=== PATIENT | male | born 1960 | race Caucasian/White ===

== ENCOUNTER 2017-07-17 15:39 | Emergency (ER) | payer SELFPAY ==
[2017-07-17] MEDS: KETOROLAC 60 MG/2 ML VIAL (J1885) IM (16:53)
== END 2017-07-17 18:07 | disposition home or self-care (01) ==
LOC: M ED 15:39
DX: M54.17 Radiculopathy, lumbosacral region (principal); F17.210 Nicotine dependence, cigarettes, uncomplicated
CPT/HCPCS: J1885

== ENCOUNTER 2018-02-12 15:13 | Emergency (ER) | payer SELFPAY ==
[2018-02-12] MEDS: NAPROXEN 250 MG TAB PO (17:18)
== END 2018-02-12 17:24 | disposition home or self-care (01) ==
LOC: M ED 15:13
DX: S83.411A Sprain of medial collateral ligament of right knee, initial encounter (principal); X58.XXXA Exposure to other specified factors, initial encounter; Y92.89 Other specified places as the place of occurrence of the external cause; K21.9 Gastro-esophageal reflux disease without esophagitis; F17.210 Nicotine dependence, cigarettes, uncomplicated
CPT/HCPCS: 99284

== ENCOUNTER 2020-11-30 11:16 | Emergency (ER) | payer OTHER, SELFPAY ==
[~2020-11-30] VITALS: Ht 175.3 cm; Wt 95.9 kg
[~2020-11-30 11:16] MED LIST: ADVI200T PO; KETO10TAB PO; NAPR-837 PO; PRIL40CA PO; ROBA500T PO
[2020-11-30] MEDS ORDERED: methocarbamoL 750 MG TAB PO ONE (13:00)
[2020-11-30] MEDS ORDERED: KETOROLAC 60MG 2ML VIAL IM ONE (13:00)
[2020-11-30] MEDS ORDERED: LIDOCAINE 5% (LIDODERM) PATCH TD ONE (13:00)
--- NOTE | 2020-11-30 14:07 | REP ---
INDICATION: fall 5 ft, landed Left hip/low back, pain. COMPARISON: 07/17/2017. TECHNIQUE: Five views lumbosacral spine. FINDINGS: There is no compression fracture. There is normal alignment and lumbar lordosis. There is moderate diffuse spurring. There is moderate disc space narrowing and subchondral sclerosis at all levels. There is sclerosis and spurring at the posterior facet joints diffusely. Posterior elements are intact. There is mild sclerosis at the SI joints. IMPRESSION: No acute fracture or dislocation. Degenerative changes. <Electronically signed by Jeffry Casillas > 11/30/20 [id number]
--- NOTE | 2020-11-30 14:08 | REP ---
INDICATION: fall 5 ft, landed Left hip/low back, pain. COMPARISON: None. TECHNIQUE: Two views left hip. FINDINGS: There is no evidence of acute fracture, dislocation or intrinsic bone disease. There is mild joint space narrowing, subchondral sclerosis and spurring of the left hip joint. IMPRESSION: No acute fracture or dislocation. Mild degenerative changes. <Electronically signed by Jeffry Casillas > 11/30/20 0331
[2020-11-30] MEDS ORDERED: ASPE4PAD TOP (14:39)
[2020-11-30] MEDS ORDERED: METH-1165 PO (14:39)
[2020-11-30 14:47] VITALS: BP 133/92
[2020-12-01] MEDS ORDERED: **NOTE PATIENT COMMENT** MISC XX ONE (01:00)
== END 2020-11-30 14:50 | disposition home or self-care (01) ==
LOC: M ED 11:16
DX: M54.5 Low back pain (principal); M25.552 Pain in left hip; W11.XXXA Fall on and from ladder, initial encounter; Y92.9 Unspecified place or not applicable; Y93.9 Activity, unspecified; Y99.9 Unspecified external cause status; M25.752 Osteophyte, left hip; M24.152 Other articular cartilage disorders, left hip; M48.07 Spinal stenosis, lumbosacral region; M46.1 Sacroiliitis, not elsewhere classified; K21.9 Gastro-esophageal reflux disease without esophagitis; F17.200 Nicotine dependence, unspecified, uncomplicated
CPT/HCPCS: 72110; 73502; 96372; 99283; J1885

== ENCOUNTER 2022-11-24 21:04 | Inpatient (IN) | payer OTHER, SELFPAY ==
[~2022-11-24] VITALS: Ht 175.3 cm; Wt 94.1 kg
[~2022-11-24 21:04] MED LIST changes: +ASPE4PAD TOP; +METH-1165 PO; +NICOTINE 21MG/24HR 1 EA TRANSDERMAL TD SCH
[2022-11-24 21:56] LABS: BASO # 0.1 10^3/uL (0.0-0.2); BASO % 0.6 % (0.0-1.0); EOS # 0.2 10^3/uL (0.0-0.5); EOS % 1.8 % (0.0-3.0); HEMATOCRIT 45.1 % (42.0-52.0); LYMPH # 1.8 10^3/uL (1.5-5.0); LYMPH % 18.3 % (24.0-44.0); MEAN CORPUSCULAR HEMOGLOBIN 29.5 pg (27.0-33.0); MEAN CORPUSCULAR HGB CONC 33.3 g/dl (32.0-36.5); MEAN CORPUSCULAR VOLUME 88.8 fl (80.0-96.0); MONO # 0.9 10^3/uL (0.0-0.8); MONO % 9.1 % (2.0-8.0); NEUTROPHILS # 6.7 10^3/uL (1.5-8.5); PLATELET COUNT, AUTOMATED 237 10^3/uL (150-450); RED BLOOD COUNT 5.08 10^6/uL (4.30-6.10); WHITE BLOOD COUNT 9.6 10^3/uL (4.0-10.0)
[2022-11-24 22:18] LABS: CK-MB VALUE MASS 5.1 NG/ML (<3.6)
[2022-11-24 22:20] LABS: BLOOD UREA NITROGEN 15 MG/DL (9-23); CALCIUM LEVEL 8.7 MG/DL (8.3-10.6); CARBON DIOXIDE LEVEL 31 MMOL/L (20-31); CHLORIDE LEVEL 106 MMOL/L (98-107); CPK CREATINE PHOSPHOKINASE 215 U/L (46-171); CREATININE FOR GFR 0.91 MG/DL (0.70-1.30); GLOMERULAR FILTRATION RATE > 60.0 (>49); GLUCOSE, FASTING 75 MG/DL (74-106); MB/CK RELATIVE INDEX 2.37 (< OR =4); POTASSIUM SERUM 4.2 MMOL/L (3.5-5.1); SODIUM LEVEL 142 MMOL/L (136-145)
[2022-11-25] MEDS ORDERED: IPRATROPIUM 0.5MG/ALBUTEROL 2.5MG INH SOL UD 3ML (DUONEB) NEB ONE
[2022-11-25] MEDS ORDERED: methylPREDNISolone 125MG 2ML VIAL IV ONE
[2022-11-25 00:15] LABS: ALBUMIN 3.7 G/DL (3.2-5.2); ALKALINE PHOSPHATASE 95 U/L (46-116); ALT/SGPT 20 U/L (7.0-40); AST/SGOT 17 U/L (<34); BILIRUBIN,DIRECT 0.5 MG/DL (<0.4); BILIRUBIN,TOTAL 1.1 MG/DL (0.3-1.2); CK-MB VALUE MASS 3.7 NG/ML (<3.6); TOTAL PROTEIN 6.7 G/DL (5.7-8.2)
[2022-11-25 00:17] LABS: CPK CREATINE PHOSPHOKINASE 204 U/L (46-171); MB/CK RELATIVE INDEX 1.81 (< OR =4)
[2022-11-25] MEDS ORDERED: ISOVUE-370 76% 100ML VIAL As Ordered ONE (00:39)
[2022-11-25 00:55] LABS: THYROID STIMULATING HORMONE 2.695 uIU/ML (0.55-4.78)
[2022-11-25 00:59] LABS: PROCALCITONIN <0.04 ng/ml
[2022-11-25] MEDS ORDERED: NS 1,000 ML IV ONE (01:00)
[2022-11-25] MEDS ORDERED: cefTRIAXone SOD 2 GM in D5W MINI-BAG PLUS 50 ML IV ONE (01:00)
[2022-11-25] MEDS ORDERED: ONDANSETRON 4MG 2ML VIAL As Ordered ONE (01:24)
[2022-11-25] MEDS ORDERED: ONDANSETRON 4MG 2ML VIAL IV ONE (01:30)
[2022-11-25] MEDS ORDERED: MAALOX 30 ML SUSP *UDC PO PRN (01:45)
[2022-11-25] MEDS ORDERED: MOM 30ML SUSPENSION UDC PO PRN (01:45)
[2022-11-25] MEDS ORDERED: ACETAMINOPHEN TAB 650MG DOSE (2X325MG) PO PRN (01:45)
[2022-11-25 01:46] LABS: INR 1.19; PROTHROMBIN TIME 14.8 SECONDS (12.5-14.5)
[2022-11-25 01:47] LABS: PARTIAL THROMBOPLASTIN TIME 31.3 SECONDS (24.8-34.2)
[2022-11-25] MEDS: METOPROLOL TART 25 MG TABLET PO SCH ×2 (02:10→08:10)
[2022-11-25] MEDS ORDERED: FAMO10TA50 PO (02:25)
[2022-11-25] MEDS ORDERED: PHEN-879 PO (02:25)
[2022-11-25] MEDS ORDERED: HOME MED LIST COMPLETE! XX SCH (02:25)
[2022-11-25] MEDS: IPRATROPIUM 0.5MG/ALBUTEROL 2.5MG INH SOL UD 3ML (DUONEB) NEB SCH ×3 (02:27→13:16)
[2022-11-25] MEDS ORDERED: DOXYCYCLINE HYCLATE 100 MG in D5W MINI-BAG PLUS 100 ML IV SCH (03:00)
[2022-11-25] MEDS: methylPREDNISolone 40MG 1ML VIAL IV SCH ×2 (05:54→12:04)
[2022-11-25] MEDS ORDERED: APIXABAN 5 MG TAB (ELIQUIS) PO SCH ×2 (06:00→21:00)
[2022-11-25 06:40] LABS: HEMATOCRIT 46.5 % (42.0-52.0); MEAN CORPUSCULAR HEMOGLOBIN 28.8 pg (27.0-33.0); MEAN CORPUSCULAR HGB CONC 32.3 g/dl (32.0-36.5); MEAN CORPUSCULAR VOLUME 89.4 fl (80.0-96.0); PLATELET COUNT, AUTOMATED 237 10^3/uL (150-450); WHITE BLOOD COUNT 8.3 10^3/uL (4.0-10.0)
[2022-11-25 07:04] LABS: BLOOD UREA NITROGEN 12 MG/DL (9-23); CALCIUM LEVEL 8.8 MG/DL (8.3-10.6); CARBON DIOXIDE LEVEL 27 MMOL/L (20-31); CHLORIDE LEVEL 106 MMOL/L (98-107); CREATININE FOR GFR 0.72 MG/DL (0.70-1.30); GLOMERULAR FILTRATION RATE > 60.0 (>49); GLUCOSE, FASTING 177 MG/DL (74-106); MAGNESIUM LEVEL 1.7 MG/DL (1.8-2.4); POTASSIUM SERUM 4.3 MMOL/L (3.5-5.1); SODIUM LEVEL 139 MMOL/L (136-145)
[2022-11-25] MEDS ORDERED: MAG SULF 1GM/100ML (MAG RUN) 1 GM in IV 1 EA IV ONE (08:00)
[2022-11-25] MEDS ORDERED: BUDESONIDE 0.5 MG/2 ML INHALATION SUSPENSION INH SCH (08:00)
[2022-11-25 08:10] VITALS: BP 154/84
[2022-11-25] MEDS ORDERED: APIXABAN 5 MG TAB (ELIQUIS) PO ONE (12:10)
[2022-11-25] MEDS ORDERED: ELIQ5TAB PO (12:16)
[2022-11-25] MEDS ORDERED: CEFD300C41 PO (12:16)
[2022-11-25] MEDS ORDERED: METO1TAB87 PO (12:16)
[2022-11-25] MEDS ORDERED: DOXY100C3 PO (12:16)
[2022-11-25] MEDS ORDERED: PRED10TA2 PO (12:16)
[2022-11-25] MEDS ORDERED: VENTAER INH (12:16)
[2022-11-25] MEDS ORDERED: DOXYCYCLINE HYCLATE 100MG TABLET PO ONE (13:25)
[2022-11-25 14:45] VITALS: O2SAT 90
[2022-11-25 14:53] VITALS: BP 142/77; TEMP 97.7
[2022-11-26] MEDS ORDERED: cefTRIAXone SOD 1 GM in D5W MINI-BAG PLUS 50 ML IV SCH (01:00)
[2022-12-02] MEDS ORDERED: APIXABAN 5 MG TAB (ELIQUIS) PO SCH (09:00)
== END 2022-11-25 15:15 | disposition home or self-care (01) | DRG 134 ==
LOC: M ED 21:04 → M ED INP 11-25 01:45
PROVIDERS: ADMIT Family Medicine; ATTEND Internal Medicine
DX: I26.99 Other pulmonary embolism without acute cor pulmonale (principal); I48.91 Unspecified atrial fibrillation; J18.9 Pneumonia, unspecified organism; J44.1 Chronic obstructive pulmonary disease with (acute) exacerbation; I10 Essential (primary) hypertension; F17.210 Nicotine dependence, cigarettes, uncomplicated; Z79.899 Other long term (current) drug therapy

== ENCOUNTER 2023-02-27 12:10 | Emergency (ER) | payer SELFPAY ==
[~2023-02-27 12:10] MED LIST changes: +CEFD1CAP9 PO; +DOXY100C3 PO; +ELIQ5TAB PO; +FAMO10TA50 PO; +METO1TAB87 PO; -NICOTINE 21MG/24HR 1 EA TRANSDERMAL TD SCH; +PHEN-879 PO; +PRED10TA2 PO; +VENTAER INH
[2023-02-27] MEDS ORDERED: ISOVUE-370 76% 100ML VIAL As Ordered ONE (15:09)
[2023-02-27 15:19] VITALS: TEMP 98.5
[2023-02-27 15:45] VITALS: BP 161/90
[2023-02-27 17:19] VITALS: O2SAT 95
[2023-02-27] MEDS ORDERED: AMOX875T2 PO (17:40)
[2023-02-27] MEDS ORDERED: METO1TAB87 PO (17:40)
[2023-02-27] MEDS ORDERED: ELIQ5TAB PO (17:40)
== END 2023-02-27 18:00 | disposition home or self-care (01) ==
LOC: M ED 12:10
DX: J18.9 Pneumonia, unspecified organism (principal); I48.91 Unspecified atrial fibrillation; I44.4 Left anterior fascicular block; J44.9 Chronic obstructive pulmonary disease, unspecified; F17.200 Nicotine dependence, unspecified, uncomplicated; F10.10 Alcohol abuse, uncomplicated; Z86.79 Personal history of other diseases of the circulatory system; Z79.52 Long term (current) use of systemic steroids; Z79.01 Long term (current) use of anticoagulants; Z79.2 Long term (current) use of antibiotics; Z79.899 Other long term (current) drug therapy
CPT/HCPCS: 71046; 71275; 87486; 87581; 87633; 87798; 93005; 99284; Q9967

== ENCOUNTER 2024-02-19 13:55 | Inpatient (IN) | payer MEDICARE, SELFPAY ==
[~2024-02-19] VITALS: Ht 175.3 cm; Wt 97.6 kg
[~2024-02-19 13:55] MED LIST changes: +AMOX875T2 PO
[2024-02-19 15:36] LABS: BASO # 0.1 10^3/uL (0.0-0.2); BASO % 0.5 % (0.0-1.0); EOS # 0.4 10^3/uL (0.0-0.5); HEMATOCRIT 49.7 % (42.0-52.0); HEMOGLOBIN 15.8 g/dl (13.5-17.5); LYMPH # 1.6 10^3/uL (1.5-5.0); LYMPH % 16.5 % (24.0-44.0); MEAN CORPUSCULAR HEMOGLOBIN 28.9 pg (27.0-33.0); MEAN CORPUSCULAR HGB CONC 31.8 g/dl (32.0-36.5); MEAN CORPUSCULAR VOLUME 90.9 fl (80.0-96.0); MONO # 0.9 10^3/uL (0.0-0.8); MONO % 9.3 % (2.0-8.0); NEUTROPHILS # 6.7 10^3/uL (1.5-8.5); NEUTROPHILS % 69.4 % (36.0-66.0); PLATELET COUNT, AUTOMATED 279 10^3/uL (150-450); RED BLOOD COUNT 5.47 10^6/uL (4.30-6.10); WHITE BLOOD COUNT 9.6 10^3/uL (4.0-10.0)
[2024-02-19 15:54] LABS: ALBUMIN 3.8 G/DL (3.2-5.2); ALKALINE PHOSPHATASE 108 U/L (40-129); ALT/SGPT 19 U/L (7.0-40); AST/SGOT 19 U/L (<34); BLOOD UREA NITROGEN 14 MG/DL (9-23); CALCIUM LEVEL 9.3 MG/DL (8.3-10.6); CARBON DIOXIDE LEVEL 31 MMOL/L (20-31); CHLORIDE LEVEL 108 MMOL/L (98-107); CREATININE FOR GFR 0.89 MG/DL (0.70-1.30); GLOMERULAR FILTRATION RATE > 60.0 (>49); GLUCOSE, FASTING 81 MG/DL (74-106); INR 1.01; PARTIAL THROMBOPLASTIN TIME 38.3 SECONDS (24.8-34.2); POTASSIUM SERUM 4.2 MMOL/L (3.5-5.1); PROTHROMBIN TIME 13.6 SECONDS (12.5-14.5); SODIUM LEVEL 140 MMOL/L (136-145); TOTAL PROTEIN 7.1 G/DL (5.7-8.2)
[2024-02-19] MEDS: LevoFLOXacin IV 750 MG in IV 1 EA IV ONE (17:41)
[2024-02-19] MEDS: LEVALBUTEROL 1.25MG 0.5ML CONCENTRATE NEB NEB ONE (18:22)
[2024-02-19] MEDS: IPRATROPIUM 0.02% SOLN 0.5MG 2.5ML NEB NEB ONE (18:22)
[2024-02-19] MEDS: diphenhydrAMINE 25MG CAP PO ONE (18:35)
[2024-02-19] MEDS: diphenhydrAMINE 50MG/ML VIAL IV STA (18:41)
[2024-02-19] MEDS: ACETAMINOPHEN 500 MG TAB PO ONE (18:56)
[2024-02-19] MEDS: dexAMETHasone 20MG/5ML VIAL IV ONE (18:58)
[2024-02-19] MEDS: cefTRIAXone SOD 1 GM in DEXTROSE 5% (D5W) ADV/MINI-BAG 50 ML IV ONE (18:58)
[2024-02-19] MEDS: AZITHROMYCIN INJ 500 MG, VIAL MATE ADAPTER 1 EACH in NS 250 ML IV ONE (19:40)
[2024-02-19 20:32] LABS: D-DIMER QUANT 0.51 ug/mL (<0.5)
[2024-02-19] MEDS: ASPIRIN 81MG CHEW TABLET PO ONE (20:38)
[2024-02-19] MEDS: METOPROLOL 5 MG/5 ML VIAL IV STA (20:59)
[2024-02-19] MEDS ORDERED: ISOVUE-370 76% 100ML VIAL As Ordered ONE (21:27)
[2024-02-19] MEDS ORDERED: MOM 30ML SUSPENSION UDC PO PRN (22:00)
[2024-02-19 23:13] VITALS: BP 130/92; TEMP 97.3; O2SAT 96
[2024-02-19] MEDS ORDERED: ALBUTEROL SULFATE 2.5MG/0.5ML INH NEB SOLN NEB PRN (23:35)
[2024-02-19] MEDS: ENOXAPARIN 100MG/1ML SYRINGE (J1650 PER 10MG) SC SCH (23:37)
[2024-02-19] MEDS: METOPROLOL TART 25 MG TABLET PO SCH (23:37)
[2024-02-19] MEDS: guaiFENesin ER TABLET 600 MG TAB PO SCH (23:37)
[2024-02-19] MEDS: LEVALBUTEROL 1.25MG 0.5ML CONCENTRATE NEB INH SCH (23:43)
[2024-02-20 04:23] VITALS: BP 118/58; TEMP 96.8; O2SAT 92
[2024-02-20 06:31] LABS: HEMATOCRIT 45.4 % (42.0-52.0); HEMOGLOBIN 15.2 g/dl (13.5-17.5); MEAN CORPUSCULAR HEMOGLOBIN 29.9 pg (27.0-33.0); MEAN CORPUSCULAR HGB CONC 33.5 g/dl (32.0-36.5); MEAN CORPUSCULAR VOLUME 89.2 fl (80.0-96.0); PLATELET COUNT, AUTOMATED 273 10^3/uL (150-450); RED BLOOD COUNT 5.09 10^6/uL (4.30-6.10); WHITE BLOOD COUNT 8.7 10^3/uL (4.0-10.0)
[2024-02-20 07:39] LABS: ALBUMIN 3.3 G/DL (3.2-5.2); ALKALINE PHOSPHATASE 101 U/L (40-129); ALT/SGPT 19 U/L (7.0-40); AST/SGOT 17 U/L (<34); BLOOD UREA NITROGEN 14 MG/DL (9-23); CALCIUM LEVEL 9.4 MG/DL (8.3-10.6); CARBON DIOXIDE LEVEL 26 MMOL/L (20-31); CHLORIDE LEVEL 105 MMOL/L (98-107); GLOMERULAR FILTRATION RATE > 60.0 (>49); GLUCOSE, FASTING 136 MG/DL (74-106); POTASSIUM SERUM 4.5 MMOL/L (3.5-5.1); SODIUM LEVEL 138 MMOL/L (136-145); TOTAL PROTEIN 6.7 G/DL (5.7-8.2)
[2024-02-20] MEDS: ACETAMINOPHEN 325 MG TAB PO PRN (07:59)
[2024-02-20] MEDS: NICOTINE 14 MG/24 HR TRANSDERMAL TD SCH (08:00)
[2024-02-20] MEDS ORDERED: NAPR-837 PO (10:12)
[2024-02-20] MEDS ORDERED: HOME MED LIST COMPLETE! XX SCH (10:15)
[2024-02-20] MEDS ORDERED: IPRATROPIUM 0.5MG/ALBUTEROL 2.5MG INH SOL UD 3ML (DUONEB) NEB PRN (10:35)
[2024-02-20 12:00] VITALS: BP 131/84; TEMP 97.5; O2SAT 96
[2024-02-20] MEDS: methylPREDNISolone 40MG 1ML VIAL IV SCH (12:13)
[2024-02-20] MEDS: IPRATROPIUM 0.5MG/ALBUTEROL 2.5MG INH SOL UD 3ML (DUONEB) NEB SCH (13:49)
[2024-02-20] MEDS: cefTRIAXone SOD 1 GM in DEXTROSE 5% (D5W) ADV/MINI-BAG 50 ML IV SCH (18:37)
[2024-02-20] MEDS: ADVAIR HFA 115/21MCG INHALER INH SCH (19:23)
[2024-02-20 19:44] VITALS: BP 151/79; TEMP 97.9; O2SAT 96
[2024-02-20] MEDS: APIXABAN 5 MG TAB (ELIQUIS) PO SCH (21:30)
[2024-02-20] MEDS: AZITHROMYCIN 250MG TABLET PO SCH (21:30)
[2024-02-21 04:14] VITALS: BP 140/75; TEMP 97.7; O2SAT 95
[2024-02-21 06:09] LABS: BASO % 0.1 % (0.0-1.0); HEMATOCRIT 45.6 % (42.0-52.0); HEMOGLOBIN 14.8 g/dl (13.5-17.5); LYMPH % 4.5 % (24.0-44.0); MEAN CORPUSCULAR HEMOGLOBIN 29.3 pg (27.0-33.0); MEAN CORPUSCULAR HGB CONC 32.5 g/dl (32.0-36.5); MEAN CORPUSCULAR VOLUME 90.3 fl (80.0-96.0); MONO # 0.5 10^3/uL (0.0-0.8); MONO % 2.5 % (2.0-8.0); NEUTROPHILS # 19.7 10^3/uL (1.5-8.5); NEUTROPHILS % 91.8 % (36.0-66.0); PLATELET COUNT, AUTOMATED 267 10^3/uL (150-450); RED BLOOD COUNT 5.05 10^6/uL (4.30-6.10); WHITE BLOOD COUNT 21.4 10^3/uL (4.0-10.0)
[2024-02-21 06:40] LABS: BLOOD UREA NITROGEN 14 MG/DL (9-23); CALCIUM LEVEL 9.8 MG/DL (8.3-10.6); CARBON DIOXIDE LEVEL 28 MMOL/L (20-31); CHLORIDE LEVEL 103 MMOL/L (98-107); CREATININE FOR GFR 0.71 MG/DL (0.70-1.30); GLOMERULAR FILTRATION RATE > 60.0 (>49); GLUCOSE, FASTING 162 MG/DL (74-106); POTASSIUM SERUM 4.6 MMOL/L (3.5-5.1); SODIUM LEVEL 138 MMOL/L (136-145)
[2024-02-21] MEDS: TIOTROPIUM INHALER/CAPSULE (SPIRIVA) INH SCH (07:41)
[2024-02-21] MEDS ORDERED: AZIT-12 PO (08:55)
[2024-02-21] MEDS ORDERED: ELIQ5TAB PO (08:55)
[2024-02-21] MEDS ORDERED: BUDE180A2 INH (08:55)
[2024-02-21 10:25] VITALS: BP 140/75
[2024-02-21] MEDS ORDERED: XARE15TA PO (10:34)
[2024-02-21] MEDS ORDERED: XARE20TA PO (10:34)
[2024-02-21] MEDS ORDERED: ADV250INH INH (10:43)
[2024-02-21] MEDS: PREVNAR-20 VACCINE 0.5ML SYRINGE IM.IMMUN ONE (12:22)
[2024-02-27] MEDS ORDERED: APIXABAN 5 MG TAB (ELIQUIS) PO SCH (21:00)
== END 2024-02-21 12:50 | disposition home health service (06) | DRG 175 ==
LOC: M ED 13:55 → M ED INP 21:58 → M MSPAV 23:09
PROVIDERS: ADMIT Student in an Organized Health Care Education/Training Program; ATTEND Internal Medicine
DX: I26.99 Other pulmonary embolism without acute cor pulmonale (principal); J18.9 Pneumonia, unspecified organism; J44.1 Chronic obstructive pulmonary disease with (acute) exacerbation; J98.11 Atelectasis; J44.0 Chronic obstructive pulmonary disease with (acute) lower respiratory infection; I50.22 Chronic systolic (congestive) heart failure; I11.0 Hypertensive heart disease with heart failure; I48.91 Unspecified atrial fibrillation; F17.200 Nicotine dependence, unspecified, uncomplicated; R91.8 Other nonspecific abnormal finding of lung field; Z88.8 Allergy status to other drugs, medicaments and biological substances; Z79.899 Other long term (current) drug therapy

== ENCOUNTER → 2024-05-03 | Outpatient (CLI) | payer MEDICARE, SELFPAY ==
[~2024-05-03] MED LIST changes: +ADVA1AER9 INH; +AZIT-12 PO; +BUDE180A2 INH; +XARE15TA PO; +XARE20TA PO
== END ==
LOC: M CARPUL 09:04
PROVIDERS: ATTEND Nurse Practitioner Family
DX: I50.9 Heart failure, unspecified (principal); I08.0 Rheumatic disorders of both mitral and aortic valves; I37.1 Nonrheumatic pulmonary valve insufficiency

== ENCOUNTER → 2024-06-05 | Outpatient (REF) | payer MEDICARE ==
[2024-06-05 13:35] LABS: CREATININE, URINE 66.1 MG/DL
[2024-06-05 13:36] LABS: MALB URINE SIEMENS < 3.0 MG/L
[2024-06-05 15:55] LABS: BASO # 0.1 10^3/uL (0.0-0.2); BASO % 0.7 % (0.0-1.0); EOS # 0.2 10^3/uL (0.0-0.5); EOS % 1.8 % (0.0-3.0); HEMATOCRIT 51.8 % (42.0-52.0); HEMOGLOBIN 17.1 g/dl (13.5-17.5); LYMPH % 23.1 % (24.0-44.0); MEAN CORPUSCULAR VOLUME 87.8 fl (80.0-96.0); MONO # 0.8 10^3/uL (0.0-0.8); NEUTROPHILS # 5.7 10^3/uL (1.5-8.5); NEUTROPHILS % 65.1 % (36.0-66.0); PLATELET COUNT, AUTOMATED 225 10^3/uL (150-450); WHITE BLOOD COUNT 8.7 10^3/uL (4.0-10.0)
[2024-06-05 15:57] LABS: CHOLESTEROL RISK RATIO 3.68 (<5); HDL CHOLESTEROL 34.7 MG/DL (>40); LDL CHOLESTEROL 82.1 MG/DL (<100); NON-HDL-C 93.3 MG/DL
[2024-06-05 16:00] LABS: THYROID STIMULATING HORMONE 2.644 uIU/ML (0.55-4.78)
[2024-06-05 16:13] LABS: HEMOGLOBIN A1c 5.5 % (4.0-6.0)
== END ==
LOC: M LAB REF 12:03
PROVIDERS: ATTEND Nurse Practitioner Family
DX: I10 Essential (primary) hypertension (principal); I50.9 Heart failure, unspecified; E66.3 Overweight; K21.9 Gastro-esophageal reflux disease without esophagitis; Z79.899 Other long term (current) drug therapy

== ENCOUNTER → 2024-07-17 | Outpatient (CLI) | payer MEDICARE | LOC: M PLARAD 10:40 | PROVIDERS: ATTEND Nurse Practitioner Family | DX: R91.8 Other nonspecific abnormal finding of lung field (principal) | CPT/HCPCS: 78815; A9552 ==

== ENCOUNTER 2024-09-26 09:48 | Inpatient (IN) | payer MEDICARE ==
[~2024-09-26] VITALS: Ht 175.3 cm; Wt 90.0 kg
[2024-09-26] MEDS: metroNIDAZOLE 500 MG in IV 1 EA IV ONE (06:00)
[~2024-09-26 09:48] MED LIST changes: +ASPI81CH33 PO; +METO25TA4 PO; +PANT40TA29 PO; +TELM1TAB33; +TELM1TAB35 PO
[2024-09-26] MEDS: CelecoXIB 400 MG CAP PO ONE (10:34)
[2024-09-26] MEDS: ALVIMOPAN 12 MG CAPSULE PO ONE (10:35)
[2024-09-26] MEDS: LR 1,000 ML IV SCH ×2 (10:40→17:35)
[2024-09-26] MEDS ORDERED: ALBU8.5H INH (11:16)
[2024-09-26] MEDS ORDERED: METO25TA4 PO (11:18)
[2024-09-26] MEDS ORDERED: ADVA1AER9 INH (11:20)
[2024-09-26] MEDS ORDERED: ALBU2.5V10 INH (11:21)
[2024-09-26] MEDS ORDERED: ACET1TAB55 PO (11:21)
[2024-09-26] MEDS ORDERED: HOME MED LIST COMPLETE! XX SCH (11:25)
[2024-09-26] MEDS ORDERED: MULTTAB86 PO (11:26)
[2024-09-26] MEDS ORDERED: MIDAZOLAM INJ 2 MG/2 ML VIAL As Ordered ONE (11:27)
[2024-09-26] MEDS ORDERED: ROCURONIUM BROMIDE 50MG/5ML VIAL As Ordered ONE (11:27)
[2024-09-26] MEDS ORDERED: LIDOCAINE 2% 100 MG/5 ML SDV (FOR ANES.) As Ordered ONE (11:27)
[2024-09-26] MEDS: IPRATROPIUM 0.5 MG/ALBUTEROL 2.5 MG INH SOL UD 3 ML NEB ONE (11:50)
[2024-09-26 12:09] LABS: T UPTAKE 55.0 % (22.5-37.0)
[2024-09-26 12:10] LABS: THYROXINE (T4) 3.8 UG/DL (4.5-10.9)
[2024-09-26] MEDS: HEPARIN SOD 5000 UNITS/ML 1 ML VIAL/SYRINGE SQ ONE (12:25)
[2024-09-26] MEDS ORDERED: PHENYLephrine 500MCG 5ML (100MCG/ML) SYRINGE As Ordered ONE (12:30)
[2024-09-26] MEDS: ceFAZolin SOD 2 GM IV ONCE IV ONE (12:33)
[2024-09-26] MEDS ORDERED: dexAMETHasone 4 MG/ML 1 ML VIAL As Ordered ONE (12:36)
[2024-09-26] MEDS ORDERED: PHENYLEPHRINE 10MG/ML 1ML VIAL As Ordered ONE (13:12)
[2024-09-26] MEDS: LIDOCAINE 1% SDV 30 ML VIAL As Ordered ONE (13:42)
[2024-09-26] MEDS ORDERED: HYDROmorphone HCL 2 MG/ML 1 ML VIAL As Ordered ONE (14:04)
[2024-09-26] MEDS ORDERED: SUGAMMADEX SODIUM 500 MG/5 ML VIAL As Ordered ONE (14:18)
[2024-09-26] MEDS ORDERED: ACETAMINOPHEN 1000MG/100ML IV BAG As Ordered ONE (14:18)
[2024-09-26] MEDS ORDERED: ONDANSETRON 4MG 2ML VIAL As Ordered ONE (14:18)
[2024-09-26] MEDS: INDOCYANINE GREEN 25 MG VIAL As Ordered ONE (15:31)
[2024-09-26] MEDS: GLUCAGON INJ 1 MG VIAL As Ordered ONE (16:06)
[2024-09-26] MEDS ORDERED: ONDANSETRON 4MG 2ML VIAL IV PRN ×2 (17:35)
[2024-09-26] MEDS ORDERED: MORPHINE 2 MG/ML 1 ML VIAL IV PRN (17:35)
[2024-09-26] MEDS: ACETAMINOPHEN 325 MG TAB PO SCH (17:35)
[2024-09-26] MEDS ORDERED: ALBUTEROL SULFATE 2.5 MG/0.5 ML INH CONCENTRATE NEB SOLN INH PRN (17:35)
[2024-09-26] MEDS ORDERED: ALBUTEROL 90 MCG/ACT 8 GM HFA INHALER INH PRN (17:35)
[2024-09-26] MEDS ORDERED: MOM 30 ML SUSPENSION UDC PO PRN (17:35)
[2024-09-26 18:37] VITALS: BP 149/96; TEMP 97.2; O2SAT 90
[2024-09-26 19:00] VITALS: BP 121/88; TEMP 97.3; O2SAT 91
[2024-09-26 19:40] VITALS: BP 129/88; TEMP 96.9; O2SAT 91
[2024-09-26] MEDS: ADVAIR HFA 115/21 MCG INHALER INH SCH (20:00)
[2024-09-26 20:50] VITALS: BP 131/88; TEMP 96.8; O2SAT 94
[2024-09-26] MEDS: KETOROLAC 30 MG/ML 1 ML VIAL IV SCH (21:12)
[2024-09-26] MEDS: METOPROLOL TART 25 MG TABLET PO SCH (21:13)
[2024-09-26 21:50] VITALS: BP 144/93; TEMP 97.3; O2SAT 96
[2024-09-26 23:03] VITALS: BP 141/93; TEMP 97.3; O2SAT 95
[2024-09-27] VITALS (29 sets, daily range): BP systolic 74–135; BP diastolic 50–87; TEMP 97–99.2; O2SAT 88–99
[2024-09-27] MEDS: NOREPINEPHRINE 4MG IN D5 250ML 4 MG in IV 1 EA IV SCH (02:03)
[2024-09-27 05:48] LABS: BASO # 0.0 10^3/uL (0.0-0.2); BASO % 0.1 % (0.0-1.0); EOS # 0.0 10^3/uL (0.0-0.5); EOS % 0.0 % (0.0-3.0); LYMPH # 1.1 10^3/uL (1.5-5.0); LYMPH % 5.6 % (24.0-44.0); MONO # 0.9 10^3/uL (0.0-0.8); MONO % 4.6 % (2.0-8.0); NEUTROPHILS # 18.0 10^3/uL (1.5-8.5); NEUTROPHILS % 89.2 % (36.0-66.0); PLATELET COUNT, AUTOMATED 254 10^3/uL (150-450)
[2024-09-27 06:21] LABS: CALCIUM LEVEL 8.5 MG/DL (8.3-10.6); CARBON DIOXIDE LEVEL 27 MMOL/L (20-31); CHLORIDE LEVEL 105 MMOL/L (98-107); CREATININE FOR GFR 0.82 MG/DL (0.70-1.30); GLOMERULAR FILTRATION RATE > 90.0 (>49); POTASSIUM SERUM 4.3 MMOL/L (3.5-5.1); SODIUM LEVEL 144 MMOL/L (136-145)
[2024-09-27] MEDS: ENOXAPARIN 40 MG/0.4 ML SYRINGE (J1650 PER 10MG) SC SCH (08:52)
[2024-09-27] MEDS: PANTOPRAZOLE 40MG TAB PO SCH (08:52)
[2024-09-27] MEDS: TELMISARTAN 20 MG TAB PO SCH (08:54)
[2024-09-27] MEDS: ASPIRIN 81 MG CHEWABLE TABLET PO SCH (08:54)
[2024-09-27] MEDS: NS (Normal Saline) 0.9% 1,000 ML IV ONE ×2 (13:33→16:07)
[2024-09-27] MEDS ORDERED: ISOVUE-370 76% 100 ML VIAL As Ordered ONE (15:08)
[2024-09-27] MEDS: DIGOXIN INJ 0.5 MG/2 ML AMP IV STA (18:54)
[2024-09-27] MEDS: METOPROLOL TART 25 MG TABLET PO SCH (20:02)
[2024-09-27] MEDS: diphenhydrAMINE 50 MG/ML VIAL IV ONE (20:47)
[2024-09-27] MEDS: HYDROCORTISONE 100 MG/2 ML VIAL IV STA (20:55)
[2024-09-27] MEDS: ACETAMINOPHEN *IV* 500 MG in IV 1 EA IV ONE (21:00)
[2024-09-27 21:21] LABS: CALCIUM LEVEL 7.2 MG/DL (8.3-10.6); CARBON DIOXIDE LEVEL 26.0 MMOL/L (20-31); CHLORIDE LEVEL 109.0 MMOL/L (98-107); CREATININE FOR GFR 1.01 MG/DL (0.70-1.30); GLOMERULAR FILTRATION RATE 82.5 (>49); POTASSIUM SERUM 4.6 MMOL/L (3.5-5.1); SODIUM LEVEL 143.0 MMOL/L (136-145)
[2024-09-27 22:31] LABS: ABG BASE EXCESS -1.0 (-2.0-2.0); ABG HCO3 22.5 MMOL/L (22.0-26.0); ABG O2 SATURATION 94.6 % (95.0-99.0); ABG PARTIAL PRESSURE CO2 33.0 mmHg (35.0-45.0); ABG PARTIAL PRESSURE O2 71.2 mmHg (75.0-100.0); ABG STANDARD HCO3 23.6 MMOL/L. (22.0-26.0); ABG TOTAL CO2 23.5 MMOL/L (23.0-31.0); ABG pH (ARTERIAL) 7.452 UNITS (7.350-7.450)
[2024-09-27 23:06] LABS: INR 1.15
[2024-09-27] MEDS: FUROSEMIDE 20 MG/2 ML VIAL IV ONE (23:57)
[2024-09-28] VITALS (92 sets, daily range): BP systolic 69–152; BP diastolic 40–70; TEMP 97–99.7; O2SAT 89–99
[2024-09-28] MEDS: LIDOCAINE 2% 5 ML JELLY UROJET TOP ONE (00:50)
[2024-09-28] MEDS ORDERED: KETAMINE HCL 200 MG/20 ML VIAL As Ordered ONE (03:03)
[2024-09-28] MEDS ORDERED: VASOPRESSIN INJ 20UNITS/ML 1ML VIAL As Ordered ONE (03:07)
[2024-09-28] MEDS ORDERED: ETOMIDATE 20 MG/10 ML VIAL As Ordered ONE (03:24)
[2024-09-28] MEDS ORDERED: LIDOCAINE PRES-FREE 2% 10 ML AMP As Ordered ONE (04:12)
[2024-09-28] MEDS ORDERED: CALCIUM CHLORIDE 10% 1 GM/10 ML SYR As Ordered ONE (04:20)
[2024-09-28 05:16] LABS: IONIZED CALCIUM 4.7 MG/DL (4.5-5.3)
[2024-09-28 05:46] LABS: INR 1.12
[2024-09-28 05:47] LABS: ALT/SGPT 17.0 U/L (7.0-40); AST/SGOT 23.0 U/L (<34); CALCIUM LEVEL 8.2 MG/DL (8.3-10.6); CARBON DIOXIDE LEVEL 25.0 MMOL/L (20-31); CHLORIDE LEVEL 109.0 MMOL/L (98-107); CREATININE FOR GFR 0.94 MG/DL (0.70-1.30); GLOMERULAR FILTRATION RATE 90.0 (>49); POTASSIUM SERUM 4.4 MMOL/L (3.5-5.1); SODIUM LEVEL 143.0 MMOL/L (136-145)
[2024-09-28 08:24] LABS: BASO # 0.0 10^3/uL (0.0-0.2); BASO % 0.1 % (0.0-1.0); EOS # 0.0 10^3/uL (0.0-0.5); EOS % 0.0 % (0.0-3.0); LYMPH # 3.1 10^3/uL (1.5-5.0); LYMPH % 13.2 % (24.0-44.0); MONO # 1.7 10^3/uL (0.0-0.8); MONO % 7.4 % (2.0-8.0); NEUTROPHILS # 18.3 10^3/uL (1.5-8.5); NEUTROPHILS % 78.7 % (36.0-66.0); PLATELET COUNT, AUTOMATED 192 10^3/uL (150-450)
[2024-09-28] MEDS: TIOTROPIUM BROM 2.5MCG/ACTUATION 4GM INH INH SCH (08:41)
[2024-09-28 08:42] LABS: C REACTIVE PROTEIN QUANTITATIV 5.06 MG/DL (<1.0); CALCIUM LEVEL 7.8 MG/DL (8.3-10.6); CARBON DIOXIDE LEVEL 26.0 MMOL/L (20-31); CHLORIDE LEVEL 109.0 MMOL/L (98-107); CREATININE FOR GFR 1.02 MG/DL (0.70-1.30); GLOMERULAR FILTRATION RATE 81.6 (>49); MAGNESIUM LEVEL 1.5 MG/DL (1.8-2.4); POTASSIUM SERUM 4.3 MMOL/L (3.5-5.1); SODIUM LEVEL 144.0 MMOL/L (136-145)
[2024-09-28] MEDS: VASOPRESSIN IN 0.9 % NACL 20 UNIT in IV 1 EA IV SCH (09:17)
[2024-09-28] MEDS: DIGOXIN INJ 0.5 MG/2 ML AMP IV SCH (09:17)
[2024-09-28] MEDS: LR 1,000 ML IV ONE (10:00)
[2024-09-28 12:49] LABS: BASO # 0.0 10^3/uL (0.0-0.2); BASO % 0.2 % (0.0-1.0); EOS # 0.0 10^3/uL (0.0-0.5); EOS % 0.1 % (0.0-3.0); LYMPH # 2.3 10^3/uL (1.5-5.0); LYMPH % 14.4 % (24.0-44.0); MONO # 1.5 10^3/uL (0.0-0.8); MONO % 9.3 % (2.0-8.0); NEUTROPHILS # 11.9 10^3/uL (1.5-8.5); NEUTROPHILS % 75.1 % (36.0-66.0); PLATELET COUNT, AUTOMATED 154 10^3/uL (150-450)
[2024-09-28] MEDS: SODIUM CHLORIDE 0.9% INJ 10 ML SYR IV SCH (17:53)
[2024-09-28 18:17] LABS: BASO # 0.1 10^3/uL (0.0-0.2); BASO % 0.3 % (0.0-1.0); EOS # 0.0 10^3/uL (0.0-0.5); EOS % 0.2 % (0.0-3.0); LYMPH # 2.3 10^3/uL (1.5-5.0); LYMPH % 14.4 % (24.0-44.0); MONO # 1.5 10^3/uL (0.0-0.8); MONO % 9.1 % (2.0-8.0); NEUTROPHILS # 12.1 10^3/uL (1.5-8.5); NEUTROPHILS % 75.3 % (36.0-66.0); PLATELET COUNT, AUTOMATED 141 10^3/uL (150-450)
[2024-09-28] MEDS: MORPHINE 2 MG/ML 1 ML VIAL IV ONE (21:38)
[2024-09-29] VITALS (53 sets, daily range): BP systolic 94–170; BP diastolic 50–93; TEMP 97.5–99.2; O2SAT 89–100
[2024-09-29] MEDS: NOREPINEPHRINE 4MG IN D5 250ML 4 MG in IV 1 EA IV SCH
[2024-09-29 00:34] LABS: BASO # 0.1 10^3/uL (0.0-0.2); BASO % 0.4 % (0.0-1.0); EOS # 0.1 10^3/uL (0.0-0.5); EOS % 0.5 % (0.0-3.0); LYMPH # 2.1 10^3/uL (1.5-5.0); LYMPH % 12.8 % (24.0-44.0); MONO # 1.6 10^3/uL (0.0-0.8); MONO % 9.8 % (2.0-8.0); NEUTROPHILS # 12.4 10^3/uL (1.5-8.5); NEUTROPHILS % 75.7 % (36.0-66.0); PLATELET COUNT, AUTOMATED 154 10^3/uL (150-450)
[2024-09-29 04:32] LABS: BASO # 0.0 10^3/uL (0.0-0.2); BASO % 0.3 % (0.0-1.0); EOS # 0.1 10^3/uL (0.0-0.5); EOS % 0.6 % (0.0-3.0); LYMPH # 1.7 10^3/uL (1.5-5.0); LYMPH % 11.6 % (24.0-44.0); MONO # 1.2 10^3/uL (0.0-0.8); MONO % 8.5 % (2.0-8.0); NEUTROPHILS # 11.2 10^3/uL (1.5-8.5); NEUTROPHILS % 78.3 % (36.0-66.0); PLATELET COUNT, AUTOMATED 148 10^3/uL (150-450)
[2024-09-29 04:58] LABS: CALCIUM LEVEL 7.3 MG/DL (8.3-10.6); CARBON DIOXIDE LEVEL 28 MMOL/L (20-31); CHLORIDE LEVEL 109 MMOL/L (98-107); CREATININE FOR GFR 0.69 MG/DL (0.70-1.30); GLOMERULAR FILTRATION RATE > 90.0 (>49); MAGNESIUM LEVEL 1.4 MG/DL (1.8-2.4); PHOSPHORUS LEVEL 2.2 MG/DL (2.4-5.1); POTASSIUM SERUM 3.7 MMOL/L (3.5-5.1); SODIUM LEVEL 146 MMOL/L (136-145)
[2024-09-29] MEDS: MAG SULF 1GM/100ML (MAG RUN) 1 GM in IV 1 EA IV ONE (06:19)
[2024-09-29] MEDS: K-PHOS ORIGINAL (POT.ACID PHOSPHATE) 500 MG TAB PO ONE (06:36)
[2024-09-29] MEDS: MORPHINE 4 MG/ML 1 ML VIAL IV PRN (07:43)
[2024-09-29] MEDS ORDERED: ACETAMINOPHEN 325 MG TAB PO PRN (08:20)
[2024-09-29] MEDS ORDERED: METOPROLOL TART 25 MG TABLET PO SCH (09:00)
[2024-09-29] MEDS: CALCIUM GLUCONATE 1,000 MG in DEXTROSE 5% (D5W) MINI-BAG PLU 100 ML IV ONE (09:17)
[2024-09-29] MEDS ORDERED: VANCOMYCIN HCL IV ONE (09:30)
[2024-09-29] MEDS ORDERED: FLUID PLACE HOLDER IV ONE (09:30)
[2024-09-29] MEDS: METOPROLOL 5 MG/5 ML VIAL IV STA (09:38)
[2024-09-29] MEDS: PIPERACILLIN/TAZOBACTAM SOD 4.5 GM in DEXTROSE 5% (D5W) ADV/MINI-BAG 50 ML IV SCH (10:37)
[2024-09-29 10:48] LABS: APPEARANCE, URINE HAZY (CLEAR); BACTERIA, URINE AUTO 1+ (NEGATIVE); BILIRUBIN, URINE AUTO NEGATIVE (NEGATIVE); BLOOD, URINE BLOOD 2+ (NEGATIVE); GLUCOSE, URINE (UA) AUTO NEGATIVE (NEGATIVE); KETONE, URINE AUTO NEGATIVE (NEGATIVE); LEUKOCYTE ESTERASE, URINE AUTO 1+ (NEGATIVE); MUCUS, URINE SMALL (NEGATIVE); NITRITE, URINE AUTO NEGATIVE (NEGATIVE); PROTEIN, URINE AUTO NEGATIVE (NEGATIVE); RBC, URINE AUTO 30 /HPF (0-3); SPECIFIC GRAVITY URINE AUTO 1.018 (1.002-1.035); SQUAMOUS EPITHELIAL CELL UR AU 0 /HPF (0-6); UROBILINOGEN, URINE AUTO 4.0 mg/dL (0.0-2.0); WBC, URINE AUTO 26 /HPF (0-3)
[2024-09-29] MEDS: LR 1,000 ML IV ONE (10:50)
[2024-09-29] MEDS: GASTROGRAFIN SOLUTION 30ML PO SCH (11:33)
[2024-09-29 12:24] LABS: BASO # 0.0 10^3/uL (0.0-0.2); BASO % 0.2 % (0.0-1.0); EOS # 0.0 10^3/uL (0.0-0.5); EOS % 0.1 % (0.0-3.0); LYMPH # 0.6 10^3/uL (1.5-5.0); LYMPH % 4.5 % (24.0-44.0); MONO # 0.7 10^3/uL (0.0-0.8); MONO % 5.1 % (2.0-8.0); NEUTROPHILS # 11.7 10^3/uL (1.5-8.5); NEUTROPHILS % 89.7 % (36.0-66.0); PLATELET COUNT, AUTOMATED 148 10^3/uL (150-450)
[2024-09-29] MEDS: VANCOMYCIN HCL 2,000 MG, VIAL MATE ADAPTER 1 EACH in NS 500 ML IV ONE (14:11)
[2024-09-29] MEDS ORDERED: AMIODARONE 150 MG/3 ML VIAL As Ordered ONE (19:49)
[2024-09-29] MEDS ORDERED: FENTANYL DRIP LOCK BOX KEY 1 EACH XX PRN (23:05)
[2024-09-29] MEDS: dexmedeTOMidine 200 MCG in IV 1 EA IV SCH (23:28)
[2024-09-29] MEDS: fentaNYL CITRATE/NaCl 1,000 MCG in IV 1 EA IV SCH (23:29)
[2024-09-29] MEDS: LR 500 ML IV SCH (23:29)
[2024-09-29] MEDS: MIDAZOLAM INJ 2 MG/2 ML VIAL IV PRN (23:55)
[2024-09-30] VITALS (118 sets, daily range): BP systolic 52–158; BP diastolic 30–78; TEMP 97.7–99; O2SAT 93–100
[2024-09-30 00:31] LABS: ABG BASE EXCESS 2.1 (-2.0-2.0); ABG HCO3 27.3 MMOL/L (22.0-26.0); ABG O2 SATURATION 97.3 % (95.0-99.0); ABG PARTIAL PRESSURE CO2 45.1 mmHg (35.0-45.0); ABG PARTIAL PRESSURE O2 112.1 mmHg (75.0-100.0); ABG STANDARD HCO3 26.4 MMOL/L. (22.0-26.0); ABG TOTAL CO2 28.7 MMOL/L (23.0-31.0); ABG pH (ARTERIAL) 7.400 UNITS (7.350-7.450)
[2024-09-30] MEDS: VANCOMYCIN HCL 1,250 MG, VIAL MATE ADAPTER 1 EACH in NS 250 ML IV SCH (02:09)
[2024-09-30 05:05] LABS: BASO # 0.0 10^3/uL (0.0-0.2); BASO % 0.1 % (0.0-1.0); EOS # 0.0 10^3/uL (0.0-0.5); EOS % 0.0 % (0.0-3.0); LYMPH # 1.0 10^3/uL (1.5-5.0); LYMPH % 6.1 % (24.0-44.0); MONO # 0.9 10^3/uL (0.0-0.8); MONO % 5.1 % (2.0-8.0); NEUTROPHILS # 15.0 10^3/uL (1.5-8.5); NEUTROPHILS % 88.0 % (36.0-66.0); PLATELET COUNT, AUTOMATED 170 10^3/uL (150-450)
[2024-09-30 05:30] LABS: ALT/SGPT 32 U/L (7.0-40); AST/SGOT 36 U/L (<34); CALCIUM LEVEL 6.6 MG/DL (8.3-10.6); CARBON DIOXIDE LEVEL 27 MMOL/L (20-31); CHLORIDE LEVEL 97 MMOL/L (98-107); CREATININE FOR GFR 0.68 MG/DL (0.70-1.30); GLOMERULAR FILTRATION RATE > 90.0 (>49); MAGNESIUM LEVEL 1.2 MG/DL (1.8-2.4); PHOSPHORUS LEVEL 3.7 MG/DL (2.4-5.1); POTASSIUM SERUM 3.5 MMOL/L (3.5-5.1); SODIUM LEVEL 134 MMOL/L (136-145)
[2024-09-30] MEDS: MAG SULF 1GM/100ML (MAG RUN) 1 GM in IV 1 EA IV ONE (06:44)
[2024-09-30] MEDS: CALCIUM GLUCONATE 1,000 MG in DEXTROSE 5% (D5W) MINI-BAG PLU 100 ML IV ONE (07:53)
[2024-09-30] MEDS: PANTOPRAZOLE 40MG VIAL IV SCH (09:54)
[2024-09-30] MEDS: MAG SULF 1GM/100ML (MAG RUN) 1 GM in IV 1 EA IV SCH (09:59)
[2024-09-30] MEDS: VANCOMYCIN HCL 1,500 MG, VIAL MATE ADAPTER 1 EACH in NS 500 ML IV ONE (11:51)
[2024-09-30] MEDS: KCL 20MEQ IN 100ML SWI (KRUN) 20 MEQ in IV 1 EA IV ONE (11:52)
[2024-09-30 14:27] LABS: BASO # 0.0 10^3/uL (0.0-0.2); BASO % 0.1 % (0.0-1.0); EOS # 0.0 10^3/uL (0.0-0.5); EOS % 0.1 % (0.0-3.0); LYMPH # 1.2 10^3/uL (1.5-5.0); LYMPH % 8.3 % (24.0-44.0); MONO # 1.0 10^3/uL (0.0-0.8); MONO % 6.7 % (2.0-8.0); NEUTROPHILS # 11.9 10^3/uL (1.5-8.5); NEUTROPHILS % 84.3 % (36.0-66.0); PLATELET COUNT, AUTOMATED 208 10^3/uL (150-450)
[2024-09-30 14:51] LABS: CALCIUM LEVEL 7.0 MG/DL (8.3-10.6); CARBON DIOXIDE LEVEL 31 MMOL/L (20-31); CHLORIDE LEVEL 104 MMOL/L (98-107); CREATININE FOR GFR 0.68 MG/DL (0.70-1.30); GLOMERULAR FILTRATION RATE > 90.0 (>49); MAGNESIUM LEVEL 2.0 MG/DL (1.8-2.4); POTASSIUM SERUM 4.2 MMOL/L (3.5-5.1); SODIUM LEVEL 142 MMOL/L (136-145)
[2024-09-30] MEDS: VANCOMYCIN HCL 1,000 MG, VIAL MATE ADAPTER 1 EACH in NS 250 ML IV SCH (20:50)
[2024-10-01] VITALS (76 sets, daily range): BP systolic 80–140; BP diastolic 46–121; TEMP 97–98.4; O2SAT 85–99
[2024-10-01 04:30] LABS: BASO # 0.0 10^3/uL (0.0-0.2); BASO % 0.1 % (0.0-1.0); EOS # 0.1 10^3/uL (0.0-0.5); EOS % 1.0 % (0.0-3.0); LYMPH # 1.2 10^3/uL (1.5-5.0); LYMPH % 8.0 % (24.0-44.0); MONO # 1.1 10^3/uL (0.0-0.8); MONO % 7.5 % (2.0-8.0); NEUTROPHILS # 12.0 10^3/uL (1.5-8.5); NEUTROPHILS % 82.7 % (36.0-66.0); PLATELET COUNT, AUTOMATED 210 10^3/uL (150-450)
[2024-10-01 04:49] LABS: ALT/SGPT 26 U/L (7.0-40); AST/SGOT 24 U/L (<34); CALCIUM LEVEL 7.1 MG/DL (8.3-10.6); CARBON DIOXIDE LEVEL 31 MMOL/L (20-31); CHLORIDE LEVEL 104 MMOL/L (98-107); CREATININE FOR GFR 0.68 MG/DL (0.70-1.30); GLOMERULAR FILTRATION RATE > 90.0 (>49); MAGNESIUM LEVEL 1.9 MG/DL (1.8-2.4); POTASSIUM SERUM 3.7 MMOL/L (3.5-5.1); SODIUM LEVEL 143 MMOL/L (136-145)
[2024-10-01] MEDS: KCL 20MEQ IN 100ML SWI (KRUN) 20 MEQ in IV 1 EA IV SCH (10:49)
[2024-10-01] MEDS: MAG SULF 1GM/100ML (MAG RUN) 1 GM in IV 1 EA IV SCH (10:50)
[2024-10-01] MEDS ORDERED: CHLORASEPTIC SPRAY MT PRN (14:45)
[2024-10-01] MEDS: CEPACOL LOZENGE PO PRN (16:11)
[2024-10-01] MEDS: METOPROLOL 5 MG/5 ML VIAL IV PRN (17:56)
[2024-10-01] MEDS: HEPARIN SOD 5000 UNITS/ML 1 ML VIAL/SYRINGE SQ SCH (20:27)
[2024-10-02] VITALS (30 sets, daily range): BP systolic 90–163; BP diastolic 59–96; TEMP 97.5–98.8; O2SAT 90–98
[2024-10-02 06:08] LABS: BASO # 0.0 10^3/uL (0.0-0.2); BASO % 0.1 % (0.0-1.0); EOS # 0.2 10^3/uL (0.0-0.5); EOS % 1.3 % (0.0-3.0); LYMPH # 1.3 10^3/uL (1.5-5.0); LYMPH % 7.5 % (24.0-44.0); MONO # 1.3 10^3/uL (0.0-0.8); MONO % 7.7 % (2.0-8.0); NEUTROPHILS # 13.8 10^3/uL (1.5-8.5); NEUTROPHILS % 82.6 % (36.0-66.0); PLATELET COUNT, AUTOMATED 242 10^3/uL (150-450)
[2024-10-02 06:33] LABS: ALT/SGPT 39 U/L (7.0-40); AST/SGOT 40 U/L (<34); CALCIUM LEVEL 7.5 MG/DL (8.3-10.6); CARBON DIOXIDE LEVEL 29 MMOL/L (20-31); CHLORIDE LEVEL 102 MMOL/L (98-107); CREATININE FOR GFR 0.72 MG/DL (0.70-1.30); GLOMERULAR FILTRATION RATE > 90.0 (>49); MAGNESIUM LEVEL 2.0 MG/DL (1.8-2.4); PHOSPHORUS LEVEL 3.3 MG/DL (2.4-5.1); POTASSIUM SERUM 3.5 MMOL/L (3.5-5.1); SODIUM LEVEL 144 MMOL/L (136-145)
[2024-10-02] MEDS: KCL 20MEQ IN 100ML SWI (KRUN) 20 MEQ in IV 1 EA IV SCH (08:45)
[2024-10-02] MEDS: DIGOXIN INJ 0.5 MG/2 ML AMP IV ONE (08:59)
[2024-10-02] MEDS: METOPROLOL TART 12.5 MG PER 1/2 TAB PO SCH (09:42)
[2024-10-02] MEDS: METOPROLOL TART 25 MG TABLET PO ONE (11:10)
[2024-10-02] MEDS: DIGOXIN INJ 0.5 MG/2 ML AMP IV SCH (16:00)
[2024-10-02] MEDS: METOPROLOL 5 MG/5 ML VIAL IV SCH (17:42)
[2024-10-02] MEDS ORDERED: METOPROLOL 5 MG/5 ML VIAL IV SCH (18:00)
[2024-10-02] MEDS ORDERED: METOPROLOL TART 50 MG TAB PO SCH (21:00)
[2024-10-03] VITALS (34 sets, daily range): BP systolic 106–139; BP diastolic 59–80; TEMP 97.8–98.7; O2SAT 84–97
[2024-10-03 04:48] LABS: BASO # 0.0 10^3/uL (0.0-0.2); BASO % 0.2 % (0.0-1.0); EOS # 0.6 10^3/uL (0.0-0.5); EOS % 4.9 % (0.0-3.0); LYMPH # 1.1 10^3/uL (1.5-5.0); LYMPH % 9.7 % (24.0-44.0); MONO # 1.3 10^3/uL (0.0-0.8); MONO % 10.9 % (2.0-8.0); NEUTROPHILS # 8.5 10^3/uL (1.5-8.5); NEUTROPHILS % 73.4 % (36.0-66.0); PLATELET COUNT, AUTOMATED 285 10^3/uL (150-450)
[2024-10-03 05:04] LABS: DIGOXIN LEVEL 1.0 NG/ML (0.8-2.0)
[2024-10-03 05:05] LABS: ALT/SGPT 37 U/L (7.0-40); AST/SGOT 31 U/L (<34); CALCIUM LEVEL 7.1 MG/DL (8.3-10.6); CARBON DIOXIDE LEVEL 30 MMOL/L (20-31); CHLORIDE LEVEL 102 MMOL/L (98-107); CREATININE FOR GFR 0.63 MG/DL (0.70-1.30); GLOMERULAR FILTRATION RATE > 90.0 (>49); MAGNESIUM LEVEL 1.8 MG/DL (1.8-2.4); PHOSPHORUS LEVEL 3.5 MG/DL (2.4-5.1); POTASSIUM SERUM 3.5 MMOL/L (3.5-5.1); SODIUM LEVEL 141 MMOL/L (136-145)
[2024-10-03 05:18] LABS: C REACTIVE PROTEIN QUANTITATIV 14.73 MG/DL (<1.0)
[2024-10-03] MEDS: DIGOXIN 0.125 MG TAB PO SCH (13:31)
[2024-10-03] MEDS: dilTIAZem 25 MG/5 ML VIAL IV STA (17:47)
[2024-10-04] VITALS (7 sets, daily range): BP systolic 106–132; BP diastolic 57–73; TEMP 97.8–99.2; O2SAT 87–98
[2024-10-04 05:53] LABS: BASO # 0.0 10^3/uL (0.0-0.2); BASO % 0.2 % (0.0-1.0); EOS # 0.5 10^3/uL (0.0-0.5); EOS % 4.3 % (0.0-3.0); LYMPH # 1.1 10^3/uL (1.5-5.0); LYMPH % 9.0 % (24.0-44.0); MONO # 1.4 10^3/uL (0.0-0.8); MONO % 11.1 % (2.0-8.0); NEUTROPHILS # 9.2 10^3/uL (1.5-8.5); NEUTROPHILS % 74.0 % (36.0-66.0); PLATELET COUNT, AUTOMATED 320 10^3/uL (150-450)
[2024-10-04 06:17] LABS: CALCIUM LEVEL 7.0 MG/DL (8.3-10.6); CARBON DIOXIDE LEVEL 31 MMOL/L (20-31); CHLORIDE LEVEL 100 MMOL/L (98-107); CREATININE FOR GFR 0.63 MG/DL (0.70-1.30); GLOMERULAR FILTRATION RATE > 90.0 (>49); MAGNESIUM LEVEL 1.8 MG/DL (1.8-2.4); POTASSIUM SERUM 3.5 MMOL/L (3.5-5.1); SODIUM LEVEL 140 MMOL/L (136-145)
[2024-10-04] MEDS: dilTIAZem 60 MG TAB PO SCH (12:08)
[2024-10-05] VITALS (7 sets, daily range): BP systolic 124–140; BP diastolic 63–87; TEMP 96.9–97.9; O2SAT 92–96
[2024-10-05 05:22] LABS: BASO # 0.0 10^3/uL (0.0-0.2); BASO % 0.3 % (0.0-1.0); EOS # 0.6 10^3/uL (0.0-0.5); EOS % 3.7 % (0.0-3.0); LYMPH # 1.4 10^3/uL (1.5-5.0); LYMPH % 9.1 % (24.0-44.0); MONO # 1.6 10^3/uL (0.0-0.8); MONO % 10.3 % (2.0-8.0); NEUTROPHILS # 11.2 10^3/uL (1.5-8.5); NEUTROPHILS % 74.8 % (36.0-66.0); PLATELET COUNT, AUTOMATED 352 10^3/uL (150-450)
[2024-10-05 05:44] LABS: C REACTIVE PROTEIN QUANTITATIV 8.14 MG/DL (<1.0); CALCIUM LEVEL 7.5 MG/DL (8.3-10.6); CARBON DIOXIDE LEVEL 30 MMOL/L (20-31); CHLORIDE LEVEL 98 MMOL/L (98-107); CREATININE FOR GFR 0.66 MG/DL (0.70-1.30); GLOMERULAR FILTRATION RATE > 90.0 (>49); POTASSIUM SERUM 3.8 MMOL/L (3.5-5.1); SODIUM LEVEL 139 MMOL/L (136-145)
[2024-10-05] MEDS: FUROSEMIDE 40 MG/4 ML VIAL IV ONE (12:37)
[2024-10-06] VITALS (7 sets, daily range): BP systolic 93–136; BP diastolic 62–78; TEMP 97.1–98.1; O2SAT 90–94
[2024-10-06] MEDS: SODIUM CHLORIDE 0.9% INJ 10 ML SYR IV PRN (05:56)
[2024-10-06 06:20] LABS: BASO # 0.0 10^3/uL (0.0-0.2); BASO % 0.2 % (0.0-1.0); EOS # 0.4 10^3/uL (0.0-0.5); EOS % 3.3 % (0.0-3.0); LYMPH # 1.1 10^3/uL (1.5-5.0); LYMPH % 8.4 % (24.0-44.0); MONO # 1.3 10^3/uL (0.0-0.8); MONO % 9.6 % (2.0-8.0); NEUTROPHILS # 10.0 10^3/uL (1.5-8.5); NEUTROPHILS % 76.2 % (36.0-66.0); PLATELET COUNT, AUTOMATED 356 10^3/uL (150-450)
[2024-10-06 06:53] LABS: C REACTIVE PROTEIN QUANTITATIV 7.83 MG/DL (<1.0); CALCIUM LEVEL 7.6 MG/DL (8.3-10.6); CARBON DIOXIDE LEVEL 30 MMOL/L (20-31); CHLORIDE LEVEL 97 MMOL/L (98-107); CREATININE FOR GFR 0.65 MG/DL (0.70-1.30); GLOMERULAR FILTRATION RATE > 90.0 (>49); POTASSIUM SERUM 3.5 MMOL/L (3.5-5.1); SODIUM LEVEL 139 MMOL/L (136-145)
[2024-10-06] MEDS: POTASSIUM CHLORIDE 10MEQ SR TABLET PO ONE (09:23)
[2024-10-06] MEDS: dilTIAZem 120 MG **CD** CAPSULE PO SCH (12:47)
[2024-10-07 05:00] VITALS: BP 111/62; TEMP 97.3; O2SAT 100
[2024-10-07 06:52] LABS: BASO # 0.0 10^3/uL (0.0-0.2); BASO % 0.3 % (0.0-1.0); EOS # 0.3 10^3/uL (0.0-0.5); EOS % 2.9 % (0.0-3.0); LYMPH # 1.1 10^3/uL (1.5-5.0); LYMPH % 9.1 % (24.0-44.0); MONO # 1.2 10^3/uL (0.0-0.8); MONO % 9.7 % (2.0-8.0); NEUTROPHILS # 9.0 10^3/uL (1.5-8.5); NEUTROPHILS % 76.4 % (36.0-66.0); PLATELET COUNT, AUTOMATED 411 10^3/uL (150-450)
[2024-10-07 07:11] LABS: C REACTIVE PROTEIN QUANTITATIV 6.31 MG/DL (<1.0); CALCIUM LEVEL 7.5 MG/DL (8.3-10.6); CARBON DIOXIDE LEVEL 30 MMOL/L (20-31); CHLORIDE LEVEL 101 MMOL/L (98-107); CREATININE FOR GFR 0.67 MG/DL (0.70-1.30); GLOMERULAR FILTRATION RATE > 90.0 (>49); POTASSIUM SERUM 3.5 MMOL/L (3.5-5.1); SODIUM LEVEL 139 MMOL/L (136-145)
[2024-10-07 08:25] VITALS: BP 124/61; TEMP 97.5; O2SAT 100
[2024-10-07 13:04] VITALS: BP 119/80; TEMP 96.9; O2SAT 96
[2024-10-07 15:25] VITALS: BP 143/77; TEMP 97.9; O2SAT 97
[2024-10-07 20:18] VITALS: BP 136/77; TEMP 97.9; O2SAT 94
[2024-10-08 05:44] VITALS: BP 136/93; TEMP 97.9; O2SAT 97
[2024-10-08 06:27] LABS: BASO # 0.0 10^3/uL (0.0-0.2); BASO % 0.4 % (0.0-1.0); EOS # 0.3 10^3/uL (0.0-0.5); EOS % 3.0 % (0.0-3.0); LYMPH # 1.2 10^3/uL (1.5-5.0); LYMPH % 10.6 % (24.0-44.0); MONO # 1.0 10^3/uL (0.0-0.8); MONO % 8.9 % (2.0-8.0); NEUTROPHILS # 8.6 10^3/uL (1.5-8.5); NEUTROPHILS % 75.4 % (36.0-66.0); PLATELET COUNT, AUTOMATED 485 10^3/uL (150-450)
[2024-10-08 11:33] VITALS: BP 121/71; TEMP 98.1; O2SAT 93
[2024-10-08 20:00] VITALS: BP 119/71; TEMP 98.1; O2SAT 95
[2024-10-08] MEDS: dilTIAZem 120 MG **CD** CAPSULE PO SCH (20:41)
[2024-10-09 04:07] VITALS: BP 119/71; TEMP 97.9; O2SAT 95
[2024-10-09 05:47] LABS: BASO # 0.0 10^3/uL (0.0-0.2); BASO % 0.4 % (0.0-1.0); EOS # 0.4 10^3/uL (0.0-0.5); EOS % 3.3 % (0.0-3.0); LYMPH # 1.3 10^3/uL (1.5-5.0); LYMPH % 12.2 % (24.0-44.0); MONO # 1.1 10^3/uL (0.0-0.8); MONO % 10.7 % (2.0-8.0); NEUTROPHILS # 7.6 10^3/uL (1.5-8.5); NEUTROPHILS % 72.5 % (36.0-66.0); PLATELET COUNT, AUTOMATED 468 10^3/uL (150-450)
[2024-10-09 06:11] LABS: C REACTIVE PROTEIN QUANTITATIV 4.07 MG/DL (<1.0); CALCIUM LEVEL 7.8 MG/DL (8.3-10.6); CARBON DIOXIDE LEVEL 28 MMOL/L (20-31); CHLORIDE LEVEL 103 MMOL/L (98-107); CREATININE FOR GFR 0.74 MG/DL (0.70-1.30); GLOMERULAR FILTRATION RATE > 90.0 (>49); POTASSIUM SERUM 4.2 MMOL/L (3.5-5.1); SODIUM LEVEL 142 MMOL/L (136-145)
[2024-10-09 09:55] VITALS: BP 119/71
[2024-10-09] MEDS ORDERED: BACI28.417 TOP (09:58)
[2024-10-09] MEDS ORDERED: DILT12SRCA PO (09:58)
[2024-10-09] MEDS ORDERED: DIGO0.123 PO (09:58)
[2024-10-09] MEDS ORDERED: OXYC-517 PO (09:58)
[2024-10-09] MEDS ORDERED: AMOX875T2 PO (09:58)
[2024-10-09 12:00] VITALS: BP 120/71; TEMP 98.2; O2SAT 94
== END 2024-10-09 13:33 | disposition home health service (06) | DRG 329 ==
LOC: M OR 09:48 → M MS5PR 18:30 → M PCU 09-27 17:25 → M ICU 09-27 20:39 → M MSPAV 10-07 15:22
PROVIDERS: ADMIT Surgery; ATTEND Internal Medicine
PROC: 8E0W4CZ Robotic Assisted Procedure of Trunk Region, Percutaneous Endoscopic Approach (ICD-10-PCS; 2024-09-26)
PROC: 0DBN4ZZ Excision of Sigmoid Colon, Percutaneous Endoscopic Approach (ICD-10-PCS; principal; 2024-09-26 11:30)
PROC: 30233N1 Transfusion of Nonautologous Red Blood Cells into Peripheral Vein, Percutaneous Approach (ICD-10-PCS; 2024-09-27)
PROC: 0W3P8ZZ Control Bleeding in Gastrointestinal Tract, Via Natural or Artificial Opening Endoscopic (ICD-10-PCS; 2024-09-28)
PROC: 0DQN4ZZ Repair Sigmoid Colon, Percutaneous Endoscopic Approach (ICD-10-PCS; 2024-09-29)
PROC: 0D1K4Z4 Bypass Ascending Colon to Cutaneous, Percutaneous Endoscopic Approach (ICD-10-PCS; 2024-09-29)
PROC: 5A1945Z Respiratory Ventilation, 24-96 Consecutive Hours (ICD-10-PCS; 2024-09-29)
PROC: 8E0W4CZ Robotic Assisted Procedure of Trunk Region, Percutaneous Endoscopic Approach (ICD-10-PCS; 2024-09-29)
DX: C19 Malignant neoplasm of rectosigmoid junction (principal); R57.8 Other shock; K65.0 Generalized (acute) peritonitis; J96.01 Acute respiratory failure with hypoxia; A41.9 Sepsis, unspecified organism; J18.9 Pneumonia, unspecified organism; I50.42 Chronic combined systolic (congestive) and diastolic (congestive) heart failure; I48.21 Permanent atrial fibrillation; K91.89 Other postprocedural complications and disorders of digestive system; J98.11 Atelectasis; I27.20 Pulmonary hypertension, unspecified; I27.81 Cor pulmonale (chronic); I11.0 Hypertensive heart disease with heart failure; J44.9 Chronic obstructive pulmonary disease, unspecified; Z68.30 Body mass index [BMI] 30.0-30.9, adult; I35.9 Nonrheumatic aortic valve disorder, unspecified; F17.210 Nicotine dependence, cigarettes, uncomplicated; D50.0 Iron deficiency anemia secondary to blood loss (chronic); Z93.2 Ileostomy status; B96.1 Klebsiella pneumoniae [K. pneumoniae] as the cause of diseases classified elsewhere; R00.0 Tachycardia, unspecified; K21.9 Gastro-esophageal reflux disease without esophagitis; B96.20 Unspecified Escherichia coli [E. coli] as the cause of diseases classified elsewhere; E87.6 Hypokalemia; E87.70 Fluid overload, unspecified; K66.0 Peritoneal adhesions (postprocedural) (postinfection); Z86.711 Personal history of pulmonary embolism; Z79.82 Long term (current) use of aspirin; Z79.899 Other long term (current) drug therapy; Z88.8 Allergy status to other drugs, medicaments and biological substances

== ENCOUNTER → 2024-10-20 | Outpatient (REF) | payer MEDICARE ==
[~2024-10-20] MED LIST changes: +ACET1TAB55 PO; +ALBU2.5V10 INH; +ALBU8.5H INH; +BACI28.417 TOP; +DIGO0.123 PO; +DILT12SRCA PO; +MULTTAB86 PO; +OXYC-517 PO
== END ==
LOC: M LAB REF 12:34
PROVIDERS: ATTEND Internal Medicine Pulmonary Disease
DX: J44.1 Chronic obstructive pulmonary disease with (acute) exacerbation (principal)

== ENCOUNTER → 2024-10-23 | Outpatient (REF) | payer MEDICARE ==
[2024-10-23 16:42] LABS: BASO # 0.1 10^3/uL (0.0-0.2); BASO % 0.3 % (0.0-1.0); EOS # 0.1 10^3/uL (0.0-0.5); EOS % 0.3 % (0.0-3.0); LYMPH # 1.6 10^3/uL (1.5-5.0); LYMPH % 7.3 % (24.0-44.0); MONO # 2.5 10^3/uL (0.0-0.8); MONO % 11.1 % (2.0-8.0); NEUTROPHILS # 17.9 10^3/uL (1.5-8.5); NEUTROPHILS % 80.0 % (36.0-66.0); PLATELET COUNT, AUTOMATED 571 10^3/uL (150-450)
[2024-10-23 17:11] LABS: CALCIUM LEVEL 10.1 MG/DL (8.3-10.6); CARBON DIOXIDE LEVEL 22.0 MMOL/L (20-31); CHLORIDE LEVEL 96.0 MMOL/L (98-107); CREATININE FOR GFR 1.39 MG/DL (0.70-1.30); GLOMERULAR FILTRATION RATE 56.3 (>49); POTASSIUM SERUM 6.0 MMOL/L (3.5-5.1); SODIUM LEVEL 132.0 MMOL/L (136-145)
== END ==
LOC: M LAB REF 16:25
PROVIDERS: ATTEND Nurse Practitioner Family
DX: G89.18 Other acute postprocedural pain (principal); D64.9 Anemia, unspecified

== ENCOUNTER → 2024-10-28 | Outpatient (CLI) | payer MEDICARE ==
[2024-10-28 11:22] LABS: PLATELET COUNT, AUTOMATED 533 10^3/uL (150-450)
[2024-10-28 11:41] LABS: C REACTIVE PROTEIN QUANTITATIV 2.24 MG/DL (<1.0); CALCIUM LEVEL 9.7 MG/DL (8.3-10.6); CARBON DIOXIDE LEVEL 23.0 MMOL/L (20-31); CHLORIDE LEVEL 97.0 MMOL/L (98-107); CREATININE FOR GFR 1.69 MG/DL (0.70-1.30); GLOMERULAR FILTRATION RATE 44.5 (>49); POTASSIUM SERUM 5.5 MMOL/L (3.5-5.1); SODIUM LEVEL 130.0 MMOL/L (136-145)
[2024-10-28 11:54] LABS: ATYPICAL LYMPH 1 % (0-5); BASOPHILS 1 % (0-1); LYMPHOCYTES 8 % (16-44); METAMYELOCYTES 1 % (0-0); MONOCYTES 10 % (0-5); MYELOCYTES 2 % (0-0); NEUTROPHILS 75 % (28-66)
[2024-10-28 11:55] LABS: PLATELET CLUMPS SMALL AMT; PLATELET ESTIMATE INCREASED (NORMAL)
== END ==
LOC: M LAB 10:27
PROVIDERS: ATTEND Nurse Practitioner Family
DX: E87.5 Hyperkalemia (principal); D72.829 Elevated white blood cell count, unspecified

== ENCOUNTER → 2024-11-06 | Outpatient (REF) | payer MEDICARE ==
[2024-11-06 16:41] LABS: C REACTIVE PROTEIN QUANTITATIV < 0.50 MG/DL (<1.0); CALCIUM LEVEL 8.8 MG/DL (8.3-10.6); CARBON DIOXIDE LEVEL 23 MMOL/L (20-31); CHLORIDE LEVEL 106 MMOL/L (98-107); CREATININE FOR GFR 1.30 MG/DL (0.70-1.30); GLOMERULAR FILTRATION RATE 61.0 (>49); POTASSIUM SERUM 5.5 MMOL/L (3.5-5.1); SODIUM LEVEL 138 MMOL/L (136-145)
[2024-11-06 16:42] LABS: BASO # 0.1 10^3/uL (0.0-0.2); BASO % 0.5 % (0.0-1.0); EOS # 0.2 10^3/uL (0.0-0.5); EOS % 1.0 % (0.0-3.0); LYMPH # 3.1 10^3/uL (1.5-5.0); LYMPH % 12.7 % (24.0-44.0); MONO # 1.5 10^3/uL (0.0-0.8); MONO % 6.2 % (2.0-8.0); NEUTROPHILS # 19.0 10^3/uL (1.5-8.5); NEUTROPHILS % 76.4 % (36.0-66.0); PLATELET COUNT, AUTOMATED 526 10^3/uL (150-450)
== END ==
LOC: M LAB REF 16:12
PROVIDERS: ATTEND Nurse Practitioner Family
DX: D72.829 Elevated white blood cell count, unspecified (principal)

== ENCOUNTER → 2024-11-23 | Outpatient (CLI) | payer MEDICARE | LOC: M PLAIMG 07:49 | PROVIDERS: ATTEND Internal Medicine Pulmonary Disease | DX: R91.8 Other nonspecific abnormal finding of lung field (principal); J18.9 Pneumonia, unspecified organism; J40 Bronchitis, not specified as acute or chronic; I70.0 Atherosclerosis of aorta; N28.1 Cyst of kidney, acquired ==

== ENCOUNTER → 2024-12-20 | Outpatient (REF) | payer MEDICARE | LOC: M LAB REF 16:52 | PROVIDERS: ATTEND Internal Medicine Pulmonary Disease | DX: J44.9 Chronic obstructive pulmonary disease, unspecified (principal) ==

== ENCOUNTER 2024-12-28 13:23 | Inpatient (IN) | payer MEDICARE ==
[2024-12-28] VITALS (22 sets, daily range): BP systolic 72–109; BP diastolic 49–58; TEMP 97.6; O2SAT 92–100
[~2024-12-28] VITALS: Ht 175.3 cm; Wt 87.5 kg
[2024-12-28] MEDS ORDERED: METO1TAB33 PO (13:39)
[2024-12-28] MEDS ORDERED: IBUP200T46 PO (13:39)
[2024-12-28] MEDS ORDERED: HYDR-3363 (13:39)
[2024-12-28] MEDS ORDERED: AMOX500T2 PO (13:39)
[2024-12-28 14:16] LABS: BASO # 0.0 10^3/uL (0.0-0.2); BASO % 0.1 % (0.0-1.0); EOS # 0.0 10^3/uL (0.0-0.5); EOS % 0.1 % (0.0-3.0); LYMPH # 1.3 10^3/uL (1.5-5.0); LYMPH % 8.0 % (24.0-44.0); MONO # 0.8 10^3/uL (0.0-0.8); MONO % 4.5 % (2.0-8.0); NEUTROPHILS # 14.3 10^3/uL (1.5-8.5); NEUTROPHILS % 86.8 % (36.0-66.0); PLATELET COUNT, AUTOMATED 413 10^3/uL (150-450)
[2024-12-28 14:43] LABS: ALT/SGPT 47 U/L (7.0-40); AST/SGOT 25 U/L (<34)
[2024-12-28 15:09] LABS: OSMOLALITY SERUM 323 MOSM/KG (280-301)
[2024-12-28 15:29] LABS: INR 1.02
[2024-12-28 15:35] LABS: C REACTIVE PROTEIN QUANTITATIV 0.87 MG/DL (<1.0)
[2024-12-28] MEDS: SODIUM CHLORIDE 0.9% 1000 ML IV STA (15:40)
[2024-12-28 15:41] LABS: CALCIUM LEVEL 9.1 MG/DL (8.3-10.6); CARBON DIOXIDE LEVEL < 10.0 MMOL/L (20-31); CHLORIDE LEVEL 84 MMOL/L (98-107); CPK CREATINE PHOSPHOKINASE 137 U/L (46-171); CREATININE FOR GFR 9.97 MG/DL (0.70-1.30); GLOMERULAR FILTRATION RATE 5.3 (>49); MAGNESIUM LEVEL 2.3 MG/DL (1.8-2.4); POTASSIUM SERUM 5.9 MMOL/L (3.5-5.1); SODIUM LEVEL 118 MMOL/L (136-145)
[2024-12-28 16:16] LABS: DIGOXIN LEVEL < 0.1 NG/ML (0.8-2.0)
[2024-12-28 16:22] LABS: PHOSPHORUS LEVEL 13.4 MG/DL (2.4-5.1)
[2024-12-28 16:31] LABS: VENOUS BASE EXCESS -18.7 (-2.0-2.0); VENOUS HCO3 10.3 MMOL/L (23.0-27.0); VENOUS O2 SATURATION 74.4 % (60.0-80.0); VENOUS PARTIAL PRESSURE CO2 35.0 mmHg (38.0-50.0); VENOUS PARTIAL PRESSURE O2 47.9 mmHg (30.0-50.0); VENOUS PH 7.085 UNITS (7.330-7.430); VENOUS STANDARD HCO3 10.4 MMOL/L; VENOUS TOTAL CO2 11.3 MMOL/L (24.0-28.0)
[2024-12-28] MEDS: CALCIUM GLUCONATE 1,000 MG/10 ML VIAL IV ONE (16:35)
[2024-12-28] MEDS ORDERED: ALBUTEROL SULFATE 2.5 MG/0.5 ML INH CONCENTRATE NEB SOLN NEB PRN (16:35)
[2024-12-28] MEDS: SODIUM BICARBONATE 100 MEQ in D5W 1,000 ML IV SCH (16:36)
[2024-12-28] MEDS: DEXTROSE 50% 50 ML SYRINGE IV ONE (16:36)
[2024-12-28] MEDS: HumuLIN R (REGULAR) INSULIN (NovoLIN R) **100 U/ML** PER UNIT IV ONE (16:36)
[2024-12-28] MEDS ORDERED: METOPROLOL 5 MG/5 ML VIAL IV PRN (16:45)
[2024-12-28] MEDS: cefTRIAXone SOD 2 GM in DEXTROSE 5% (D5W) ADV/MINI-BAG 50 ML IV ONE (16:45)
[2024-12-28 17:29] LABS: APPEARANCE, URINE TURBID (CLEAR); BACTERIA, URINE AUTO NEGATIVE (NEGATIVE); BILIRUBIN, URINE AUTO NEGATIVE (NEGATIVE); BLOOD, URINE BLOOD 2+ (NEGATIVE); GLUCOSE, URINE (UA) AUTO NEGATIVE (NEGATIVE); KETONE, URINE AUTO NEGATIVE (NEGATIVE); LEUKOCYTE ESTERASE, URINE AUTO 3+ (NEGATIVE); NITRITE, URINE AUTO NEGATIVE (NEGATIVE); PROTEIN, URINE AUTO 2+ mg/dL (NEGATIVE); RBC, URINE AUTO 128 /HPF (0-3); SPECIFIC GRAVITY URINE AUTO 1.015 (1.002-1.035); SQUAMOUS EPITHELIAL CELL UR AU 0 /HPF (0-6); TRANSITIONAL EPITHELIAL AUTO 1 /HPF; UROBILINOGEN, URINE AUTO 0.2 mg/dL (0.0-2.0); WBC, URINE AUTO TNTC /HPF (0-3)
[2024-12-28 17:31] LABS: POTASSIUM RANDOM URINE 24.0 MMOL/L; SODIUM,RANDOM URINE 21 MMOL/L
[2024-12-28 17:39] LABS: AMPHETAMINES LEVEL URINE NEGATIVE (NEGATIVE); BARBITURATES URINE NEGATIVE (NEGATIVE); BENZODIAZEPINES URINE NEGATIVE (NEGATIVE); CANNABINOIDS URINE NEGATIVE (NEGATIVE); COCAINE METABOLITE URINE NEGATIVE (NEGATIVE); METHADONE URINE NEGATIVE (NEGATIVE); OPIATES URINE NEGATIVE (NEGATIVE); PHENCYCLIDINE URINE NEGATIVE (NEGATIVE)
[2024-12-28] MEDS: PANTOPRAZOLE 40MG VIAL IV SCH (17:41)
[2024-12-28 18:05] LABS: CALCIUM LEVEL 8.9 MG/DL (8.3-10.6); CARBON DIOXIDE LEVEL < 10.0 MMOL/L (20-31); CHLORIDE LEVEL 86 MMOL/L (98-107); CREATININE FOR GFR 9.94 MG/DL (0.70-1.30); GLOMERULAR FILTRATION RATE 5.3 (>49); POTASSIUM SERUM 5.4 MMOL/L (3.5-5.1); SODIUM LEVEL 119 MMOL/L (136-145)
[2024-12-28 18:19] LABS: ESTIMATED AVERAGE GLUCOSE 137.0 MG/DL (60-110)
[2024-12-28] MEDS: NS 500 ML IV ONE (19:11)
[2024-12-28 21:42] LABS: CALCIUM LEVEL 8.0 MG/DL (8.3-10.6); CARBON DIOXIDE LEVEL < 10.0 MMOL/L (20-31); CHLORIDE LEVEL 87 MMOL/L (98-107); CREATININE FOR GFR 9.43 MG/DL (0.70-1.30); GLOMERULAR FILTRATION RATE 5.6 (>49); POTASSIUM SERUM 5.0 MMOL/L (3.5-5.1); SODIUM LEVEL 119 MMOL/L (136-145)
[2024-12-28] MEDS: HEPARIN SOD 5000 UNITS/ML 1 ML VIAL/SYRINGE SC SCH (22:13)
[2024-12-28] MEDS: D5W IV SCH (22:35)
[2024-12-28] MEDS: SODIUM BICARBONATE IV SCH (22:35)
[2024-12-28] MEDS ORDERED: HOME MED LIST COMPLETE! XX SCH (23:35)
[2024-12-29] VITALS (37 sets, daily range): BP systolic 76–120; BP diastolic 51–80; TEMP 97.9–99; O2SAT 94–100
[2024-12-29] MEDS: CALCIUM CARBONATE 1250 MG/5 ML PO ONE (00:31)
[2024-12-29 01:20] LABS: CALCIUM LEVEL 7.7 MG/DL (8.3-10.6); CARBON DIOXIDE LEVEL 13.0 MMOL/L (20-31); CHLORIDE LEVEL 86.0 MMOL/L (98-107); CREATININE FOR GFR 8.94 MG/DL (0.70-1.30); GLOMERULAR FILTRATION RATE 6.0 (>49); POTASSIUM SERUM 4.7 MMOL/L (3.5-5.1); SODIUM LEVEL 120.0 MMOL/L (136-145)
[2024-12-29 05:20] LABS: BASO # 0.0 10^3/uL (0.0-0.2); BASO % 0.2 % (0.0-1.0); EOS # 0.5 10^3/uL (0.0-0.5); EOS % 3.9 % (0.0-3.0); LYMPH # 1.5 10^3/uL (1.5-5.0); LYMPH % 11.9 % (24.0-44.0); MONO # 1.2 10^3/uL (0.0-0.8); MONO % 9.1 % (2.0-8.0); NEUTROPHILS # 9.5 10^3/uL (1.5-8.5); NEUTROPHILS % 74.6 % (36.0-66.0); PLATELET COUNT, AUTOMATED 339 10^3/uL (150-450)
[2024-12-29 05:42] LABS: ALT/SGPT 33 U/L (7.0-40); AST/SGOT 19 U/L (<34); CALCIUM LEVEL 7.5 MG/DL (8.3-10.6); CARBON DIOXIDE LEVEL 16 MMOL/L (20-31); CHLORIDE LEVEL 84 MMOL/L (98-107); CREATININE FOR GFR 8.11 MG/DL (0.70-1.30); GLOMERULAR FILTRATION RATE 6.7 (>49); MAGNESIUM LEVEL 1.8 MG/DL (1.8-2.4); PHOSPHORUS LEVEL 10.2 MG/DL (2.4-5.1); POTASSIUM SERUM 4.4 MMOL/L (3.5-5.1); SODIUM LEVEL 118 MMOL/L (136-145)
[2024-12-29 06:00] LABS: ABG BASE EXCESS -7.6 (-2.0-2.0); ABG HCO3 16.0 MMOL/L (22.0-26.0); ABG O2 SATURATION 98.1 % (95.0-99.0); ABG PARTIAL PRESSURE CO2 26.5 mmHg (35.0-45.0); ABG PARTIAL PRESSURE O2 127.8 mmHg (75.0-100.0); ABG STANDARD HCO3 18.3 MMOL/L. (22.0-26.0); ABG TOTAL CO2 16.8 MMOL/L (23.0-31.0); ABG pH (ARTERIAL) 7.398 UNITS (7.350-7.450)
[2024-12-29 08:59] LABS: CALCIUM LEVEL 7.3 MG/DL (8.3-10.6); CARBON DIOXIDE LEVEL 17.0 MMOL/L (20-31); CHLORIDE LEVEL 83.0 MMOL/L (98-107); CREATININE FOR GFR 7.34 MG/DL (0.70-1.30); GLOMERULAR FILTRATION RATE 7.6 (>49); POTASSIUM SERUM 3.9 MMOL/L (3.5-5.1); SODIUM LEVEL 119.0 MMOL/L (136-145)
[2024-12-29] MEDS: ACETAMINOPHEN 325 MG TAB PO PRN (09:00)
[2024-12-29 09:56] LABS: SODIUM,RANDOM URINE < 10 MMOL/L
[2024-12-29] MEDS ORDERED: ONDANSETRON 4MG 2ML VIAL As Ordered ONE (10:13)
[2024-12-29] MEDS: ONDANSETRON 4MG 2ML VIAL IV PRN (10:16)
[2024-12-29] MEDS: SODIUM BICARBONATE 150 MEQ in D5W 1,000 ML IV SCH (11:00)
[2024-12-29 13:44] LABS: CALCIUM LEVEL 7.2 MG/DL (8.3-10.6); CARBON DIOXIDE LEVEL 22.0 MMOL/L (20-31); CHLORIDE LEVEL 79.0 MMOL/L (98-107); CREATININE FOR GFR 6.68 MG/DL (0.70-1.30); GLOMERULAR FILTRATION RATE 8.5 (>49); POTASSIUM SERUM 3.7 MMOL/L (3.5-5.1); SODIUM LEVEL 118.0 MMOL/L (136-145)
[2024-12-29] MEDS: SODIUM CHLORIDE 1 GM TAB PO SCH (14:23)
[2024-12-29 14:53] LABS: PLATELET COUNT, AUTOMATED 300 10^3/uL (150-450)
[2024-12-29] MEDS: cefTRIAXone SOD 1 GM in DEXTROSE 5% (D5W) ADV/MINI-BAG 50 ML IV SCH (16:43)
[2024-12-29 17:23] LABS: CORTISOL AM 20.8 UG/DL (4.3-22.4)
[2024-12-29 17:40] LABS: CALCIUM LEVEL 6.6 MG/DL (8.3-10.6); CARBON DIOXIDE LEVEL 24.0 MMOL/L (20-31); CHLORIDE LEVEL 77.0 MMOL/L (98-107); CREATININE FOR GFR 6.14 MG/DL (0.70-1.30); GLOMERULAR FILTRATION RATE 9.4 (>49); POTASSIUM SERUM 3.5 MMOL/L (3.5-5.1); SODIUM LEVEL 118.0 MMOL/L (136-145)
[2024-12-29] MEDS: NS (Normal Saline) 0.9% 1,000 ML IV SCH (18:05)
[2024-12-29] MEDS: CALCIUM GLUCONATE 1,000 MG in DEXTROSE 5% (D5W) MINI-BAG PLU 100 ML IV ONE (18:48)
[2024-12-29 19:37] LABS: PTH INTACT 187.7 PG/ML (18.5-88.0)
[2024-12-29 19:41] LABS: TOTAL 25(OH) VITAMIN D 17.8 NG/ML (20.0-100.0)
[2024-12-29] MEDS ORDERED: BUDESONIDE 180 MCG INHALER INH SCH (20:00)
[2024-12-29 20:07] LABS: ETHYL ALCOHOL (ETHANOL) < 0.003 % (0.000-0.010)
[2024-12-29 20:08] LABS: CHOLESTEROL LEVEL 89 MG/DL (<200); CHOLESTEROL RISK RATIO 2.93 (<5); LDL CHOLESTEROL 40.1 MG/DL (<100); NON-HDL-C 58.7 MG/DL; TRIGLYCERIDES LEVEL 93 MG/DL (<150)
[2024-12-29] MEDS ORDERED: LEVALBUTEROL 1.25 MG 0.5ML CONCENTRATE NEB INH PRN (20:35)
[2024-12-29] MEDS: guaiFENesin DM LIQ 10ML UD PO SCH (20:54)
[2024-12-29] MEDS: BUDESONIDE 0.5 MG/2 ML INHALATION SUSPENSION NEB SCH (21:12)
[2024-12-29] MEDS: LEVALBUTEROL 1.25 MG 0.5ML CONCENTRATE NEB NEB SCH (21:13)
[2024-12-29] MEDS: RAMELTEON 8 MG TAB PO ONE (23:06)
[2024-12-29 23:38] LABS: CALCIUM LEVEL 6.8 MG/DL (8.3-10.6); CARBON DIOXIDE LEVEL 27.0 MMOL/L (20-31); CHLORIDE LEVEL 80.0 MMOL/L (98-107); CREATININE FOR GFR 5.68 MG/DL (0.70-1.30); GLOMERULAR FILTRATION RATE 10.3 (>49); POTASSIUM SERUM 3.5 MMOL/L (3.5-5.1); SODIUM LEVEL 120.0 MMOL/L (136-145)
[2024-12-30] VITALS (11 sets, daily range): BP systolic 85–103; BP diastolic 52–67; TEMP 98.4–98.9; O2SAT 94–98
[2024-12-30 05:40] LABS: CALCIUM LEVEL 6.8 MG/DL (8.3-10.6); CARBON DIOXIDE LEVEL 26.0 MMOL/L (20-31); CHLORIDE LEVEL 84.0 MMOL/L (98-107); CREATININE FOR GFR 4.89 MG/DL (0.70-1.30); GLOMERULAR FILTRATION RATE 12.4 (>49); POTASSIUM SERUM 3.3 MMOL/L (3.5-5.1); SODIUM LEVEL 122.0 MMOL/L (136-145)
[2024-12-30] MEDS: COSYNTROPIN 0.25 MG/ML 1ML VIAL IV ONE (08:05)
[2024-12-30] MEDS: POTASSIUM CHLORIDE 10MEQ SR TABLET PO ONE (08:12)
[2024-12-30] MEDS: NS 500 ML IV ONE (08:12)
[2024-12-30 09:26] LABS: BASO # 0.0 10^3/uL (0.0-0.2); BASO % 0.2 % (0.0-1.0); EOS # 0.2 10^3/uL (0.0-0.5); EOS % 1.8 % (0.0-3.0); LYMPH # 1.4 10^3/uL (1.5-5.0); LYMPH % 10.8 % (24.0-44.0); MONO # 1.4 10^3/uL (0.0-0.8); MONO % 10.8 % (2.0-8.0); NEUTROPHILS # 9.7 10^3/uL (1.5-8.5); NEUTROPHILS % 76.0 % (36.0-66.0); PLATELET COUNT, AUTOMATED 341 10^3/uL (150-450)
[2024-12-30] MEDS: VITAMIN D 50,000 UNITS CAPSULE (ERGOCALCIFEROL 1.25MG) PO SCH (09:42)
[2024-12-30] MEDS: KCL 20MEQ in NS 1000ML 1,000 ML IV SCH (10:13)
[2024-12-30 10:16] LABS: PHOSPHORUS LEVEL 6.6 MG/DL (2.4-5.1)
[2024-12-30] MEDS: CALCITRIOL 0.25 MCG CAP (S0169) PO SCH (12:20)
[2024-12-30 12:47] LABS: CALCIUM LEVEL 7.0 MG/DL (8.3-10.6); CARBON DIOXIDE LEVEL 25.0 MMOL/L (20-31); CHLORIDE LEVEL 87.0 MMOL/L (98-107); CREATININE FOR GFR 4.37 MG/DL (0.70-1.30); GLOMERULAR FILTRATION RATE 14.1 (>49); POTASSIUM SERUM 4.1 MMOL/L (3.5-5.1); SODIUM LEVEL 123.0 MMOL/L (136-145)
[2024-12-30] MEDS ORDERED: AZITHROMYCIN INJ 500 MG, VIAL MATE ADAPTER 1 EACH in NS 250 ML IV SCH (13:10)
[2024-12-30] MEDS: DOXYCYCLINE HYCLATE 100 MG in DEXTROSE 5% (D5W) MINI-BAG PLU 100 ML IV SCH (13:31)
[2024-12-30 13:45] LABS: MAGNESIUM LEVEL 1.4 MG/DL (1.8-2.4)
[2024-12-30] MEDS: ACETYLCYSTEINE 20% 4 ML VIAL (200 MG/ML) INH SCH (14:14)
[2024-12-30] MEDS: FLUoxetine 20 MG CAP PO SCH (14:41)
[2024-12-30] MEDS: MAG SULF 1GM/100ML (MAG RUN) 1 GM in IV 1 EA IV SCH (15:52)
[2024-12-30] MEDS: IPRATROPIUM 0.5 MG/ALBUTEROL 2.5 MG INH SOL UD 3 ML NEB SCH (19:37)
[2024-12-31] VITALS (12 sets, daily range): BP systolic 86–112; BP diastolic 50–71; TEMP 98–98.9; O2SAT 93–96
[2024-12-31] MEDS: RAMELTEON 8 MG TAB PO ONE (00:05)
[2024-12-31 05:39] LABS: BASO # 0.0 10^3/uL (0.0-0.2); BASO % 0.3 % (0.0-1.0); EOS # 0.2 10^3/uL (0.0-0.5); EOS % 2.2 % (0.0-3.0); LYMPH # 1.1 10^3/uL (1.5-5.0); LYMPH % 11.8 % (24.0-44.0); MONO # 1.1 10^3/uL (0.0-0.8); MONO % 11.7 % (2.0-8.0); NEUTROPHILS # 7.1 10^3/uL (1.5-8.5); NEUTROPHILS % 73.6 % (36.0-66.0); PLATELET COUNT, AUTOMATED 312 10^3/uL (150-450)
[2024-12-31 06:00] LABS: IRON (FE) 155.0 UG/DL (65-175); PERCENT SATURATION 87.6 % (19.7-50.0)
[2024-12-31 06:03] LABS: ALT/SGPT 24.0 U/L (7.0-40); AST/SGOT 18.0 U/L (<34); CALCIUM LEVEL 7.7 MG/DL (8.3-10.6); CARBON DIOXIDE LEVEL 25.0 MMOL/L (20-31); CHLORIDE LEVEL 98.0 MMOL/L (98-107); CREATININE FOR GFR 2.7 MG/DL (0.70-1.30); GLOMERULAR FILTRATION RATE 25.2 (>49); MAGNESIUM LEVEL 2.2 MG/DL (1.8-2.4); POTASSIUM SERUM 4.1 MMOL/L (3.5-5.1); SODIUM LEVEL 134.0 MMOL/L (136-145)
[2024-12-31] MEDS: LR 1,000 ML IV SCH (09:22)
[2024-12-31] MEDS: MIDODRINE 5 MG TAB PO ONE (13:18)
[2024-12-31] MEDS: MIDODRINE 5 MG TAB PO SCH (17:12)
[2024-12-31] MEDS: RAMELTEON 8 MG TAB PO SCH (23:17)
[2025-01-01] VITALS (12 sets, daily range): BP systolic 105–128; BP diastolic 58–83; TEMP 98–98.5; O2SAT 95–97
[2025-01-01 04:29] LABS: BASO # 0.0 10^3/uL (0.0-0.2); BASO % 0.3 % (0.0-1.0); EOS # 0.5 10^3/uL (0.0-0.5); EOS % 4.0 % (0.0-3.0); LYMPH # 1.2 10^3/uL (1.5-5.0); LYMPH % 9.5 % (24.0-44.0); MONO # 1.2 10^3/uL (0.0-0.8); MONO % 9.9 % (2.0-8.0); NEUTROPHILS # 9.5 10^3/uL (1.5-8.5); NEUTROPHILS % 75.9 % (36.0-66.0); PLATELET COUNT, AUTOMATED 321 10^3/uL (150-450)
[2025-01-01 05:05] LABS: ALT/SGPT 24 U/L (7.0-40); AST/SGOT 19 U/L (<34); CALCIUM LEVEL 8.0 MG/DL (8.3-10.6); CARBON DIOXIDE LEVEL 26 MMOL/L (20-31); CHLORIDE LEVEL 104 MMOL/L (98-107); CREATININE FOR GFR 1.51 MG/DL (0.70-1.30); GLOMERULAR FILTRATION RATE 50.6 (>49); POTASSIUM SERUM 4.0 MMOL/L (3.5-5.1); SODIUM LEVEL 138 MMOL/L (136-145)
[2025-01-01] MEDS: SODIUM CHLORIDE 1 GM TAB PO SCH (08:04)
[2025-01-01] MEDS: METOPROLOL TART 25 MG TABLET PO ONE (08:58)
[2025-01-01] MEDS: MIDODRINE 5 MG TAB PO PRN (11:29)
[2025-01-01] MEDS: METOPROLOL TART 25 MG TABLET PO SCH (15:35)
[2025-01-01] MEDS: DOXYCYCLINE HYCLATE 100 MG TABLET PO SCH (20:13)
[2025-01-01] MEDS: CEFPODOXIME PROXETIL 200 MG TABLET PO SCH (20:13)
[2025-01-02] VITALS: BP 102/67; TEMP 98.6; O2SAT 96
[2025-01-02] MEDS: LOPERAMIDE 2 MG CAPLET PO ONE (00:21)
[2025-01-02 03:43] VITALS: BP 107/61
[2025-01-02 04:00] VITALS: BP 107/61; TEMP 98.1; O2SAT 96
[2025-01-02 05:06] LABS: BASO # 0.1 10^3/uL (0.0-0.2); BASO % 0.5 % (0.0-1.0); EOS # 1.2 10^3/uL (0.0-0.5); EOS % 11.1 % (0.0-3.0); LYMPH # 1.4 10^3/uL (1.5-5.0); LYMPH % 13.0 % (24.0-44.0); MONO # 1.3 10^3/uL (0.0-0.8); MONO % 11.3 % (2.0-8.0); NEUTROPHILS # 7.0 10^3/uL (1.5-8.5); NEUTROPHILS % 63.7 % (36.0-66.0); PLATELET COUNT, AUTOMATED 349 10^3/uL (150-450)
[2025-01-02 05:36] LABS: ALT/SGPT 26.0 U/L (7.0-40); AST/SGOT 20.0 U/L (<34); CALCIUM LEVEL 8.3 MG/DL (8.3-10.6); CARBON DIOXIDE LEVEL 28.0 MMOL/L (20-31); CHLORIDE LEVEL 105.0 MMOL/L (98-107); CREATININE FOR GFR 1.27 MG/DL (0.70-1.30); GLOMERULAR FILTRATION RATE 62.3 (>49); PHOSPHORUS LEVEL 2.9 MG/DL (2.4-5.1); POTASSIUM SERUM 4.6 MMOL/L (3.5-5.1); SODIUM LEVEL 142.0 MMOL/L (136-145)
[2025-01-02 08:00] VITALS: BP 91/58; TEMP 98.4; O2SAT 96
[2025-01-02 09:00] VITALS: BP 104/62
[2025-01-02] MEDS ORDERED: FLUO-365 PO (11:18)
[2025-01-02] MEDS ORDERED: DOXY100T PO (11:18)
[2025-01-02] MEDS ORDERED: CEFP200T PO (11:18)
[2025-01-02] MEDS ORDERED: ERGO500029 PO (11:18)
[2025-01-02] MEDS ORDERED: MIDO5TA PO (11:18)
[2025-01-02] MEDS ORDERED: CALC1CAP31 PO (11:38)
[2025-01-02] MEDS ORDERED: LOPE1CAP5 PO (11:38)
[2025-01-02] MEDS ORDERED: BLOOKIT XX (11:38)
[2025-01-02] MEDS ORDERED: TOPR25TA PO (11:38)
[2025-01-02 12:00] VITALS: BP 101/65; TEMP 98.2; O2SAT 97
[2025-01-03 07:03] LABS: URINE STREP PNEUMONIAE ANTIGEN Not Detected (Not Detected)
[2025-01-03 22:59] LABS: 25-HYDROXY VITAMIN D2 < 8 pg/mL; 25-HYDROXY VITAMIN D3 < 8 pg/mL; VITAMIN D 1 25 DIHYDROXY < 8 pg/mL (18-72)
== END 2025-01-02 14:09 | disposition home health service (06) | DRG 682 ==
LOC: M ED 13:23 → M ED INP 16:35 → M ICU 17:53
PROVIDERS: ADMIT Internal Medicine; ATTEND Internal Medicine
DX: N17.9 Acute kidney failure, unspecified (principal); J12.89 Other viral pneumonia; E87.1 Hypo-osmolality and hyponatremia; E87.20 Acidosis, unspecified; I50.22 Chronic systolic (congestive) heart failure; J44.1 Chronic obstructive pulmonary disease with (acute) exacerbation; I48.21 Permanent atrial fibrillation; N39.0 Urinary tract infection, site not specified; I11.0 Hypertensive heart disease with heart failure; Z93.2 Ileostomy status; R19.7 Diarrhea, unspecified; F17.200 Nicotine dependence, unspecified, uncomplicated; I95.9 Hypotension, unspecified; E86.0 Dehydration; E87.6 Hypokalemia; E87.5 Hyperkalemia; R11.2 Nausea with vomiting, unspecified; N25.81 Secondary hyperparathyroidism of renal origin; Z85.038 Personal history of other malignant neoplasm of large intestine; F32.A Depression, unspecified; F64.9 Gender identity disorder, unspecified; Z79.01 Long term (current) use of anticoagulants; G25.0 Essential tremor; E83.51 Hypocalcemia; Z79.899 Other long term (current) drug therapy; M54.2 Cervicalgia; B97.10 Unspecified enterovirus as the cause of diseases classified elsewhere

== ENCOUNTER 2025-01-04 09:14 | Observation (INO) | payer MEDICARE, SELFPAY ==
[~2025-01-04] VITALS: Ht 175.3 cm; Wt 81.5 kg
[~2025-01-04 09:14] MED LIST changes: +AMOX500T2 PO; +BLOOKIT XX; +CALC1CAP31 PO; +CEFP200T PO; +DOXY100T PO; +ERGO500029 PO; +FLUO-365 PO; +HYDR-3363; +IBUP200T46 PO; +LOPE1CAP5 PO; +METO1TAB33 PO; +MIDO5TA PO; +TOPR25TA PO
[2025-01-04 09:57] LABS: BASO # 0.1 10^3/uL (0.0-0.2); BASO % 0.5 % (0.0-1.0); EOS # 1.0 10^3/uL (0.0-0.5); EOS % 7.9 % (0.0-3.0); LYMPH # 1.4 10^3/uL (1.5-5.0); LYMPH % 11.0 % (24.0-44.0); MONO # 1.1 10^3/uL (0.0-0.8); MONO % 8.7 % (2.0-8.0); NEUTROPHILS # 8.8 10^3/uL (1.5-8.5); NEUTROPHILS % 71.5 % (36.0-66.0); PLATELET COUNT, AUTOMATED 433 10^3/uL (150-450)
[2025-01-04 10:07] LABS: KETONE, URINE AUTO RFX NEGATIVE (NEGATIVE); MUCUS, URINE RFX SMALL (NEGATIVE); NITRITE, URINE AUTO RFX NEGATIVE (NEGATIVE); RBC, URINE AUTO RFX 2 /HPF (0-3); SQUAM EPITHELIAL CELL UR AURFX 0 /HPF (0-6); WBC, URINE AUTO RFX 8 /HPF (0-3)
[2025-01-04 10:08] LABS: LEUKOCYTE ESTERASE UR AUTO RFX 1+ (NEGATIVE)
[2025-01-04 10:13] LABS: INR 0.97
[2025-01-04 10:22] LABS: CK-MB VALUE MASS 3.1 NG/ML (<3.6); ETHYL ALCOHOL (ETHANOL) < 0.003 % (0.000-0.010)
[2025-01-04 10:24] LABS: CALCIUM LEVEL 9.3 MG/DL (8.3-10.6); CARBON DIOXIDE LEVEL 25 MMOL/L (20-31); CHLORIDE LEVEL 110 MMOL/L (98-107); CPK CREATINE PHOSPHOKINASE 66 U/L (46-171); CREATININE FOR GFR 1.24 MG/DL (0.70-1.30); GLOMERULAR FILTRATION RATE 64.1 (>49); MAGNESIUM LEVEL 1.5 MG/DL (1.8-2.4); MB/CK RELATIVE INDEX 4.69 (< OR =4); POTASSIUM SERUM 5.2 MMOL/L (3.5-5.1); SODIUM LEVEL 146 MMOL/L (136-145)
[2025-01-04 10:33] LABS: AMPHETAMINES LEVEL URINE NEGATIVE (NEGATIVE); BARBITURATES URINE NEGATIVE (NEGATIVE); BENZODIAZEPINES URINE NEGATIVE (NEGATIVE); CANNABINOIDS URINE NEGATIVE (NEGATIVE); COCAINE METABOLITE URINE NEGATIVE (NEGATIVE); METHADONE URINE NEGATIVE (NEGATIVE); OPIATES URINE NEGATIVE (NEGATIVE); PHENCYCLIDINE URINE NEGATIVE (NEGATIVE)
[2025-01-04] MEDS: NS (Normal Saline) 0.9% 1,000 ML IV ONE ×2 (11:07→12:33)
[2025-01-04 11:12] LABS: CK-MB VALUE MASS 3.2 NG/ML (<3.6)
[2025-01-04 11:14] LABS: CPK CREATINE PHOSPHOKINASE 75.0 U/L (46-171); MB/CK RELATIVE INDEX 4.26 (< OR =4)
[2025-01-04] MEDS: MAG SULF 1GM/100ML (MAG RUN) 1 GM in IV 1 EA IV ONE (11:31)
[2025-01-04] MEDS ORDERED: HOME MED LIST COMPLETE! XX SCH (13:05)
[2025-01-04] MEDS: METOPROLOL 5 MG/5 ML VIAL IV SCH (13:17)
[2025-01-04] MEDS ORDERED: ALBUTEROL SULFATE 2.5 MG/0.5 ML INH CONCENTRATE NEB SOLN INH PRN (13:40)
[2025-01-04] MEDS ORDERED: ALBUTEROL 90 MCG/ACT 8 GM HFA INHALER INH PRN (13:40)
[2025-01-04] MEDS ORDERED: ACETAMINOPHEN 325 MG TAB PO PRN (13:40)
[2025-01-04] MEDS: METOPROLOL TART 25 MG TABLET PO SCH (14:59)
[2025-01-04] MEDS: LR 1,000 ML IV SCH (15:10)
[2025-01-04 15:30] VITALS: BP 107/73; TEMP 97.9; TEMP 98.5; O2SAT 100; O2SAT 96
[2025-01-04] MEDS: METAMUCIL PACKET PO SCH (15:57)
[2025-01-04] MEDS: ASPIRIN 81 MG ENTERIC TABLET PO SCH (15:57)
[2025-01-04] MEDS: MIDODRINE 5 MG TAB PO SCH (15:57)
[2025-01-04] MEDS: MAG SULF 1GM/100ML (MAG RUN) 1 GM in IV 1 EA IV SCH (15:58)
[2025-01-04] MEDS: CHOLESTYRAMINE 4 GM PWD PKT PO SCH ×2 (16:32→22:15)
[2025-01-04] MEDS: LOPERAMIDE 2 MG CAPLET PO SCH (18:18)
[2025-01-04 19:50] VITALS: BP 116/67; TEMP 98; O2SAT 96
[2025-01-04 23:59] VITALS: BP 111/71; TEMP 97.9; O2SAT 97
[2025-01-05 04:11] VITALS: BP 99/57; TEMP 98.2; O2SAT 96
[2025-01-05 06:57] LABS: BASO # 0.1 10^3/uL (0.0-0.2); BASO % 0.6 % (0.0-1.0); EOS # 1.2 10^3/uL (0.0-0.5); EOS % 11.9 % (0.0-3.0); LYMPH # 1.3 10^3/uL (1.5-5.0); LYMPH % 12.3 % (24.0-44.0); MONO # 0.8 10^3/uL (0.0-0.8); MONO % 7.8 % (2.0-8.0); NEUTROPHILS # 7.0 10^3/uL (1.5-8.5); NEUTROPHILS % 67.1 % (36.0-66.0); PLATELET COUNT, AUTOMATED 395 10^3/uL (150-450)
[2025-01-05 07:34] LABS: CALCIUM LEVEL 8.1 MG/DL (8.3-10.6); CARBON DIOXIDE LEVEL 24.0 MMOL/L (20-31); CHLORIDE LEVEL 107.0 MMOL/L (98-107); CREATININE FOR GFR 1.17 MG/DL (0.70-1.30); GLOMERULAR FILTRATION RATE 68.8 (>49); MAGNESIUM LEVEL 1.7 MG/DL (1.8-2.4); POTASSIUM SERUM 4.7 MMOL/L (3.5-5.1); SODIUM LEVEL 141.0 MMOL/L (136-145)
[2025-01-05 07:41] VITALS: BP 100/58; TEMP 98.1; O2SAT 98
[2025-01-05] MEDS: ENOXAPARIN 40 MG/0.4 ML SYRINGE (J1650 PER 10MG) SC SCH (09:45)
[2025-01-05] MEDS: MIDODRINE 2.5 MG TAB PO SCH (09:45)
[2025-01-05] MEDS: FLUoxetine 20 MG CAP PO SCH (09:46)
[2025-01-05] MEDS: CALCITRIOL 0.25 MCG CAP (S0169) PO SCH (09:46)
[2025-01-05] MEDS: MAG SULF 1GM/100ML (MAG RUN) 1 GM in IV 1 EA IV SCH (09:46)
[2025-01-05] MEDS: FLUZONE HIGH DOSE (65+) 0.5 ML SYRINGE (25-26) IM.IMMUN ONE (09:46)
[2025-01-05 09:49] VITALS: BP 100/60; O2SAT 97
[2025-01-05] MEDS ORDERED: META1POW PO (10:53)
[2025-01-05] MEDS ORDERED: ASPI81TAEC PO (10:53)
[2025-01-05] MEDS ORDERED: LOPE2CAP PO (10:53)
[2025-01-05] MEDS ORDERED: MIDO2.5T3 PO (10:53)
[2025-01-05] MEDS ORDERED: CHOL4PW PO (10:53)
[2025-01-05 11:08] VITALS: BP 112/68; TEMP 97.8; O2SAT 96
[2025-01-05 17:06] VITALS: BP 128/72
[2025-01-06] MEDS ORDERED: VITAMIN D 50,000 UNITS CAPSULE (ERGOCALCIFEROL 1.25MG) PO SCH (09:00)
== END 2025-01-05 17:20 | disposition home health service (06) ==
LOC: EDBD 09:14 → M ED 09:14 → M ED INP 09:15 → M PCU 15:35
PROVIDERS: ADMIT Internal Medicine; ATTEND Internal Medicine
DX: R55 Syncope and collapse (principal); I48.0 Paroxysmal atrial fibrillation; I95.1 Orthostatic hypotension; E86.1 Hypovolemia; E87.6 Hypokalemia; E83.42 Hypomagnesemia; M25.552 Pain in left hip; I11.9 Hypertensive heart disease without heart failure; I50.30 Unspecified diastolic (congestive) heart failure; F17.210 Nicotine dependence, cigarettes, uncomplicated; J44.9 Chronic obstructive pulmonary disease, unspecified; Z86.711 Personal history of pulmonary embolism; Z85.038 Personal history of other malignant neoplasm of large intestine; Z79.82 Long term (current) use of aspirin; Z79.899 Other long term (current) drug therapy
CPT/HCPCS: 36415; 70450; 71045; 73521; 73552; 80048; 80307; 81001; 82077; 82550; 82553; 83605; 83735; 84443; 84484; 85025; 85610; 85730; 87040; 87086; 93005; 93041; 94760; 96361; 96372; 96374; 96375; 96376; 97116; 97161; 99285; G0378; J0616; J1650; J3475

== ENCOUNTER → 2025-01-18 | Outpatient (REF) | payer MEDICARE ==
[~2025-01-18] MED LIST changes: +ASPI81TAEC PO; +CHOL4PW PO; +LOPE2CAP PO; +META1POW PO; +MIDO2.5T3 PO
[2025-01-18 12:57] LABS: APPEARANCE, URINE HAZY (CLEAR); BACTERIA, URINE AUTO 1+ (NEGATIVE); BILIRUBIN, URINE AUTO NEGATIVE (NEGATIVE); BLOOD, URINE BLOOD NEGATIVE (NEGATIVE); GLUCOSE, URINE (UA) AUTO NEGATIVE (NEGATIVE); KETONE, URINE AUTO NEGATIVE (NEGATIVE); LEUKOCYTE ESTERASE, URINE AUTO 2+ (NEGATIVE); MUCUS, URINE SMALL (NEGATIVE); NITRITE, URINE AUTO NEGATIVE (NEGATIVE); PROTEIN, URINE AUTO 1+ mg/dL (NEGATIVE); RBC, URINE AUTO 5 /HPF (0-3); SPECIFIC GRAVITY URINE AUTO 1.017 (1.002-1.035); SQUAMOUS EPITHELIAL CELL UR AU 1 /HPF (0-6); UROBILINOGEN, URINE AUTO 2.0 mg/dL (0.0-2.0); WBC, URINE AUTO 43 /HPF (0-3)
[2025-01-18 14:45] LABS: BASO # 0.1 10^3/uL (0.0-0.2); BASO % 1.1 % (0.0-1.0); EOS # 0.4 10^3/uL (0.0-0.5); EOS % 5.5 % (0.0-3.0); LYMPH # 1.7 10^3/uL (1.5-5.0); LYMPH % 23.1 % (24.0-44.0); MONO # 0.8 10^3/uL (0.0-0.8); MONO % 10.6 % (2.0-8.0); NEUTROPHILS # 4.2 10^3/uL (1.5-8.5); NEUTROPHILS % 59.1 % (36.0-66.0); PLATELET COUNT, AUTOMATED 457 10^3/uL (150-450)
[2025-01-18 14:53] LABS: CALCIUM LEVEL 9.4 MG/DL (8.3-10.6); CARBON DIOXIDE LEVEL 23.0 MMOL/L (20-31); CHLORIDE LEVEL 107.0 MMOL/L (98-107); CREATININE FOR GFR 2.14 MG/DL (0.70-1.30); GLOMERULAR FILTRATION RATE 33.3 (>49); PHOSPHORUS LEVEL 5.1 MG/DL (2.4-5.1); POTASSIUM SERUM 5.9 MMOL/L (3.5-5.1); SODIUM LEVEL 138.0 MMOL/L (136-145)
[2025-01-18 15:03] LABS: ESTIMATED AVERAGE GLUCOSE 126.0 MG/DL (60-110)
== END ==
LOC: M LAB REF 12:03
PROVIDERS: ATTEND Nurse Practitioner Family
DX: D64.9 Anemia, unspecified (principal); Z87.448 Personal history of other diseases of urinary system; E66.9 Obesity, unspecified; Z79.899 Other long term (current) drug therapy

== ENCOUNTER → 2025-01-23 | Outpatient (CLI) | payer MEDICARE ==
[~2025-01-23] MED LIST changes: +CEFD300CAP PO; +RISATAB3 PO
[2025-01-23 13:23] LABS: BASO # 0.1 10^3/uL (0.0-0.2); BASO % 0.8 % (0.0-1.0); EOS # 0.3 10^3/uL (0.0-0.5); EOS % 2.7 % (0.0-3.0); LYMPH # 1.5 10^3/uL (1.5-5.0); LYMPH % 16.6 % (24.0-44.0); MONO # 1.2 10^3/uL (0.0-0.8); MONO % 13.6 % (2.0-8.0); NEUTROPHILS # 6.0 10^3/uL (1.5-8.5); NEUTROPHILS % 65.3 % (36.0-66.0); PLATELET COUNT, AUTOMATED 416 10^3/uL (150-450)
[2025-01-23 13:41] LABS: CALCIUM LEVEL 9.2 MG/DL (8.3-10.6); CARBON DIOXIDE LEVEL 22.0 MMOL/L (20-31); CHLORIDE LEVEL 105.0 MMOL/L (98-107); CREATININE FOR GFR 3.17 MG/DL (0.70-1.30); GLOMERULAR FILTRATION RATE 20.8 (>49); MAGNESIUM LEVEL 2.4 MG/DL (1.8-2.4); PHOSPHORUS LEVEL 4.9 MG/DL (2.4-5.1); POTASSIUM SERUM 4.7 MMOL/L (3.5-5.1); SODIUM LEVEL 136.0 MMOL/L (136-145)
== END ==
LOC: M LAB 12:55
PROVIDERS: ATTEND Physician Assistant
DX: N19 Unspecified kidney failure (principal)

== ENCOUNTER 2025-01-25 15:32 | Observation (INO) | payer MEDICARE ==
[~2025-01-25] VITALS: Ht 175.3 cm; Wt 77.7 kg
[~2025-01-25 15:32] MED LIST changes: -CEFD300CAP PO; -RISATAB3 PO
[2025-01-25 16:20] LABS: BASO # 0.1 10^3/uL (0.0-0.2); BASO % 0.7 % (0.0-1.0); EOS # 0.4 10^3/uL (0.0-0.5); EOS % 3.5 % (0.0-3.0); LYMPH # 1.7 10^3/uL (1.5-5.0); LYMPH % 16.8 % (24.0-44.0); MONO # 0.9 10^3/uL (0.0-0.8); MONO % 8.9 % (2.0-8.0); NEUTROPHILS # 6.9 10^3/uL (1.5-8.5); NEUTROPHILS % 69.2 % (36.0-66.0); PLATELET COUNT, AUTOMATED 428 10^3/uL (150-450)
[2025-01-25 17:03] LABS: ALT/SGPT 37.0 U/L (7.0-40); AST/SGOT 55.0 U/L (<34); CALCIUM LEVEL 8.9 MG/DL (8.3-10.6); CARBON DIOXIDE LEVEL 22.0 MMOL/L (20-31); CHLORIDE LEVEL 106.0 MMOL/L (98-107); CREATININE FOR GFR 2.82 MG/DL (0.70-1.30); GLOMERULAR FILTRATION RATE 23.9 (>49); POTASSIUM SERUM 5.8 MMOL/L (3.5-5.1); SODIUM LEVEL 136.0 MMOL/L (136-145)
[2025-01-25] MEDS: NS 500 ML IV ONE (17:25)
[2025-01-25] MEDS: NS (Normal Saline) 0.9% 1,000 ML IV SCH ×2 (17:31→21:07)
[2025-01-25] MEDS ORDERED: HOME MED LIST COMPLETE! XX SCH (17:35)
[2025-01-25 20:49] LABS: KETONE, URINE AUTO RFX NEGATIVE (NEGATIVE); MUCUS, URINE RFX SMALL (NEGATIVE); NITRITE, URINE AUTO RFX NEGATIVE (NEGATIVE); RBC, URINE AUTO RFX 10 /HPF (0-3); SQUAM EPITHELIAL CELL UR AURFX 0 /HPF (0-6)
[2025-01-25 20:50] LABS: LEUKOCYTE ESTERASE UR AUTO RFX 3+ (NEGATIVE); WBC, URINE AUTO RFX 130 /HPF (0-3)
[2025-01-25] MEDS ORDERED: ONDANSETRON 4MG/2ML VIAL IV PRN (20:55)
[2025-01-25] MEDS ORDERED: ACETAMINOPHEN 325 MG TAB PO PRN (20:55)
[2025-01-25] MEDS: METOPROLOL TART 50 MG TAB PO SCH (21:45)
[2025-01-25] MEDS: LOPERAMIDE 2 MG CAPLET PO SCH (23:20)
[2025-01-25] MEDS: METAMUCIL PACKET PO SCH (23:21)
[2025-01-25 23:23] VITALS: BP 99/58; TEMP 97.2; O2SAT 97
[2025-01-26 04:18] VITALS: BP 96/52; TEMP 98.7; O2SAT 95
[2025-01-26 09:04] LABS: PLATELET COUNT, AUTOMATED 339 10^3/uL (150-450)
[2025-01-26] MEDS: PANTOPRAZOLE 40MG TAB PO SCH (09:23)
[2025-01-26] MEDS: ENOXAPARIN 30 MG/0.3 ML SYRINGE (J1650 PER 10MG) SC SCH (09:23)
[2025-01-26] MEDS: FLUoxetine 20 MG CAP PO SCH (09:23)
[2025-01-26] MEDS: ASPIRIN 81 MG ENTERIC TABLET PO SCH (09:23)
[2025-01-26] MEDS: MIDODRINE 2.5 MG TAB PO SCH (09:23)
[2025-01-26 09:30] LABS: ALT/SGPT 27.0 U/L (7.0-40); AST/SGOT 24.0 U/L (<34); CALCIUM LEVEL 8.2 MG/DL (8.3-10.6); CARBON DIOXIDE LEVEL 20.0 MMOL/L (20-31); CHLORIDE LEVEL 110.0 MMOL/L (98-107); CREATININE FOR GFR 2.06 MG/DL (0.70-1.30); GLOMERULAR FILTRATION RATE 34.9 (>49); MAGNESIUM LEVEL 2.0 MG/DL (1.8-2.4); POTASSIUM SERUM 4.5 MMOL/L (3.5-5.1); SODIUM LEVEL 139.0 MMOL/L (136-145)
[2025-01-26] MEDS: NS (Normal Saline) 0.9% 1,000 ML IV ONE (10:40)
[2025-01-26] MEDS: CHOLESTYRAMINE 4 GM PWD PKT PO SCH (10:40)
[2025-01-26 12:00] VITALS: BP 100/65; TEMP 98.2; O2SAT 96
[2025-01-26] MEDS: ALBUTEROL SULFATE 2.5 MG/0.5 ML INH CONCENTRATE NEB SOLN INH PRN (19:10)
[2025-01-26 20:12] VITALS: BP 97/61; TEMP 98.4; O2SAT 91
[2025-01-27 03:55] VITALS: BP 106/64; TEMP 97.9; O2SAT 95
[2025-01-27 06:23] LABS: BASO # 0.0 10^3/uL (0.0-0.2); BASO % 0.4 % (0.0-1.0); EOS # 0.3 10^3/uL (0.0-0.5); EOS % 3.1 % (0.0-3.0); LYMPH # 1.6 10^3/uL (1.5-5.0); LYMPH % 16.8 % (24.0-44.0); MONO # 0.8 10^3/uL (0.0-0.8); MONO % 8.6 % (2.0-8.0); NEUTROPHILS # 6.6 10^3/uL (1.5-8.5); NEUTROPHILS % 70.5 % (36.0-66.0); PLATELET COUNT, AUTOMATED 299 10^3/uL (150-450)
[2025-01-27 06:55] LABS: CALCIUM LEVEL 7.8 MG/DL (8.3-10.6); CARBON DIOXIDE LEVEL 21.0 MMOL/L (20-31); CHLORIDE LEVEL 114.0 MMOL/L (98-107); CREATININE FOR GFR 1.5 MG/DL (0.70-1.30); GLOMERULAR FILTRATION RATE 51.0 (>49); POTASSIUM SERUM 4.3 MMOL/L (3.5-5.1); SODIUM LEVEL 143.0 MMOL/L (136-145)
[2025-01-27] MEDS: CEFDINIR 300 MG CAP PO SCH (08:18)
[2025-01-27] MEDS: METOPROLOL TART 25 MG TABLET PO SCH (09:00)
[2025-01-27] MEDS ORDERED: METO1TAB87 PO (10:34)
[2025-01-27] MEDS ORDERED: RISATAB3 PO (10:34)
[2025-01-27] MEDS ORDERED: CEFD300CAP PO (10:34)
[2025-01-27 12:37] VITALS: BP 110/80; TEMP 98.3; O2SAT 99
[2025-01-27 12:50] VITALS: BP 110/80
== END 2025-01-27 14:09 | disposition home or self-care (01) ==
LOC: M ED 15:32 → INTOOBSV 20:53 → M ED INP 20:53 → M MSPAV 23:01
PROVIDERS: ADMIT Internal Medicine; ATTEND Internal Medicine Nephrology
DX: N17.8 Other acute kidney failure (principal); E86.0 Dehydration; C18.7 Malignant neoplasm of sigmoid colon; K56.7 Ileus, unspecified; N39.0 Urinary tract infection, site not specified; I48.91 Unspecified atrial fibrillation; I95.89 Other hypotension; I50.20 Unspecified systolic (congestive) heart failure; J44.9 Chronic obstructive pulmonary disease, unspecified; F17.200 Nicotine dependence, unspecified, uncomplicated; Z86.711 Personal history of pulmonary embolism; Z79.82 Long term (current) use of aspirin; Z79.2 Long term (current) use of antibiotics; Z79.899 Other long term (current) drug therapy
CPT/HCPCS: 36415; 80048; 80053; 80076; 81001; 83690; 83735; 84132; 85025; 85027; 87088; 87186; 93005; 93041; 94640; 94760; 96361; 96372; 96374; 96376; 99285; G0378; J1650

== ENCOUNTER → 2025-03-01 | Outpatient (REF) | payer MEDICARE ==
[~2025-03-01] MED LIST changes: +ASPI-226 PO; +CEFD300CAP PO; +CHOL4POW26 PO; +HYDR-3363 PO; +META58.612 PO; +RISATAB3 PO
[2025-03-01 16:51] LABS: BASO # 0.0 10^3/uL (0.0-0.2); BASO % 0.3 % (0.0-1.0); EOS # 0.3 10^3/uL (0.0-0.5); EOS % 2.5 % (0.0-3.0); LYMPH # 1.9 10^3/uL (1.5-5.0); LYMPH % 15.4 % (24.0-44.0); MONO # 1.1 10^3/uL (0.0-0.8); MONO % 9.2 % (2.0-8.0); NEUTROPHILS # 8.9 10^3/uL (1.5-8.5); NEUTROPHILS % 72.2 % (36.0-66.0); PLATELET COUNT, AUTOMATED 347 10^3/uL (150-450)
[2025-03-01 16:56] LABS: CALCIUM LEVEL 8.8 MG/DL (8.3-10.6); CARBON DIOXIDE LEVEL 22.0 MMOL/L (20-31); CHLORIDE LEVEL 106.0 MMOL/L (98-107); CREATININE FOR GFR 2.17 MG/DL (0.70-1.30); GLOMERULAR FILTRATION RATE 32.8 (>49); POTASSIUM SERUM 4.7 MMOL/L (3.5-5.1); SODIUM LEVEL 135.0 MMOL/L (136-145)
== END ==
LOC: M LAB REF 16:16
PROVIDERS: ATTEND Nurse Practitioner Family
DX: Z01.818 Encounter for other preprocedural examination (principal)

== ENCOUNTER → 2025-03-08 | Outpatient (REF) | payer MEDICARE ==
[~2025-03-08] MED LIST changes: +PERCOCET PO
== END ==
LOC: M LAB REF 17:09
PROVIDERS: ATTEND Physician Assistant
DX: I48.21 Permanent atrial fibrillation (principal)

== ENCOUNTER 2025-03-09 06:11 | Inpatient (IN) | payer MEDICARE ==
[~2025-03-09] VITALS: Ht 175.3 cm; Wt 80.4 kg
[2025-03-09] VITALS (11 sets, daily range): BP systolic 90–110; BP diastolic 55–74; TEMP 97.7–98.4; O2SAT 92–97
[~2025-03-09 06:11] MED LIST changes: -PERCOCET PO
[2025-03-09] MEDS ORDERED: LIDOCAINE 2% 100 MG/5 ML SDV (FOR ANES.) As Ordered ONE (06:59)
[2025-03-09] MEDS ORDERED: ROCURONIUM BROMIDE 50MG/5ML VIAL As Ordered ONE (06:59)
[2025-03-09] MEDS ORDERED: dexAMETHasone 4 MG/ML 1 ML VIAL As Ordered ONE (06:59)
[2025-03-09] MEDS ORDERED: KETOROLAC 30 MG/ML 1 ML VIAL As Ordered ONE (06:59)
[2025-03-09] MEDS ORDERED: ONDANSETRON 4MG/2ML VIAL As Ordered ONE (06:59)
[2025-03-09] MEDS ORDERED: SUGAMMADEX SODIUM 500 MG/5 ML VIAL As Ordered ONE (06:59)
[2025-03-09] MEDS ORDERED: MIDAZOLAM INJ 2 MG/2 ML VIAL As Ordered ONE (07:00)
[2025-03-09] MEDS: metroNIDAZOLE 500 MG in IV 1 EA IV ONE (07:10)
[2025-03-09] MEDS: ALVIMOPAN 12 MG CAPSULE PO ONE (07:10)
[2025-03-09] MEDS ORDERED: LR 1,000 ML IV SCH (07:25)
[2025-03-09] MEDS: IPRATROPIUM 0.5 MG/ALBUTEROL 2.5 MG INH SOL UD 3 ML NEB ONE (07:32)
[2025-03-09] MEDS: ceFAZolin SOD 2 GM IV ONCE IV ONE (07:54)
[2025-03-09] MEDS ORDERED: PHENYLephrine 500MCG 5ML (100MCG/ML) SYRINGE As Ordered ONE (08:09)
[2025-03-09] MEDS ORDERED: ACETAMINOPHEN 1000MG/100ML IV BAG As Ordered ONE (08:09)
[2025-03-09] MEDS: LIDOCAINE 1% SDV 30 ML VIAL As Ordered ONE (08:30)
[2025-03-09] MEDS ORDERED: ALBUTEROL 6.7 GM INHALER **FOR ANES. CART/OMNICELL ONLY As Ordered ONE (10:05)
[2025-03-09] MEDS: LR 1,000 ML IV SCH ×2 (10:15→12:44)
[2025-03-09] MEDS ORDERED: ALBUTEROL 90 MCG/ACT 8 GM HFA INHALER INH PRN (10:25)
[2025-03-09] MEDS ORDERED: PERCOCET 5MG/325MG TAB PO PRN (10:25)
[2025-03-09] MEDS ORDERED: ACETAMINOPHEN 325 MG TAB PO PRN (10:25)
[2025-03-09] MEDS ORDERED: ONDANSETRON 4MG/2ML VIAL IV PRN (10:25)
[2025-03-09] MEDS: ONDANSETRON 4MG/2ML VIAL IV PRN (10:48)
[2025-03-09] MEDS: HYDROMORPHONE HCL 0.5 MG/0.5 ML SYRINGE IV PRN (10:49)
[2025-03-09] MEDS: PERCOCET 5MG/325MG TAB PO PRN (13:03)
[2025-03-09] MEDS ORDERED: HOME MED LIST COMPLETE! XX SCH (13:35)
[2025-03-09] MEDS: MIDODRINE 2.5 MG TAB PO SCH (15:41)
[2025-03-10] VITALS (7 sets, daily range): BP systolic 102–128; BP diastolic 60–86; TEMP 98.1–98.9; O2SAT 90–97
[2025-03-10 06:38] LABS: BASO # 0.0 10^3/uL (0.0-0.2); BASO % 0.1 % (0.0-1.0); EOS # 0.0 10^3/uL (0.0-0.5); EOS % 0.0 % (0.0-3.0); LYMPH # 1.5 10^3/uL (1.5-5.0); LYMPH % 7.1 % (24.0-44.0); MONO # 1.1 10^3/uL (0.0-0.8); MONO % 5.4 % (2.0-8.0); NEUTROPHILS # 17.8 10^3/uL (1.5-8.5); NEUTROPHILS % 86.9 % (36.0-66.0); PLATELET COUNT, AUTOMATED 282 10^3/uL (150-450)
[2025-03-10 07:03] LABS: CALCIUM LEVEL 8.4 MG/DL (8.3-10.6); CARBON DIOXIDE LEVEL 25.0 MMOL/L (20-31); CHLORIDE LEVEL 106.0 MMOL/L (98-107); CREATININE FOR GFR 1.56 MG/DL (0.70-1.30); GLOMERULAR FILTRATION RATE 48.7 (>49); POTASSIUM SERUM 4.9 MMOL/L (3.5-5.1); SODIUM LEVEL 138.0 MMOL/L (136-145)
[2025-03-10] MEDS: ASPIRIN 81 MG ENTERIC TABLET PO SCH (08:38)
[2025-03-10] MEDS: PANTOPRAZOLE 40MG VIAL IV SCH (08:38)
[2025-03-10] MEDS: ENOXAPARIN 40 MG/0.4 ML SYRINGE (J1650 PER 10MG) SC SCH (08:38)
[2025-03-10] MEDS: CALCITRIOL 0.25 MCG CAP (S0169) PO SCH (08:39)
[2025-03-11 05:20] VITALS: BP 127/78; TEMP 98.6; O2SAT 92
[2025-03-11 07:26] LABS: BASO # 0.0 10^3/uL (0.0-0.2); BASO % 0.3 % (0.0-1.0); EOS # 0.1 10^3/uL (0.0-0.5); EOS % 1.3 % (0.0-3.0); LYMPH # 1.7 10^3/uL (1.5-5.0); LYMPH % 15.8 % (24.0-44.0); MONO # 1.0 10^3/uL (0.0-0.8); MONO % 8.6 % (2.0-8.0); NEUTROPHILS # 8.1 10^3/uL (1.5-8.5); NEUTROPHILS % 73.5 % (36.0-66.0); PLATELET COUNT, AUTOMATED 247 10^3/uL (150-450)
[2025-03-11 07:57] LABS: C REACTIVE PROTEIN QUANTITATIV 1.2 MG/DL (<1.0); CALCIUM LEVEL 8.3 MG/DL (8.3-10.6); CARBON DIOXIDE LEVEL 27.0 MMOL/L (20-31); CHLORIDE LEVEL 108.0 MMOL/L (98-107); CREATININE FOR GFR 1.39 MG/DL (0.70-1.30); GLOMERULAR FILTRATION RATE 55.9 (>49); POTASSIUM SERUM 4.7 MMOL/L (3.5-5.1); SODIUM LEVEL 140.0 MMOL/L (136-145)
[2025-03-11] MEDS: METAMUCIL PACKET PO SCH (11:44)
[2025-03-11 14:00] VITALS: BP 125/79; TEMP 98.7; O2SAT 94
[2025-03-11 16:00] VITALS: BP 84/67
[2025-03-11 19:21] VITALS: BP 112/62; TEMP 98.2; O2SAT 92
[2025-03-12 05:00] VITALS: BP 115/56; TEMP 98.7; O2SAT 94
[2025-03-12 07:32] LABS: BASO # 0.0 10^3/uL (0.0-0.2); BASO % 0.4 % (0.0-1.0); EOS # 0.2 10^3/uL (0.0-0.5); EOS % 2.0 % (0.0-3.0); LYMPH # 1.4 10^3/uL (1.5-5.0); LYMPH % 14.8 % (24.0-44.0); MONO # 0.8 10^3/uL (0.0-0.8); MONO % 8.7 % (2.0-8.0); NEUTROPHILS # 6.9 10^3/uL (1.5-8.5); NEUTROPHILS % 73.8 % (36.0-66.0); PLATELET COUNT, AUTOMATED 257 10^3/uL (150-450)
[2025-03-12 07:44] LABS: C REACTIVE PROTEIN QUANTITATIV 3.43 MG/DL (<1.0)
[2025-03-12 07:45] LABS: CALCIUM LEVEL 8.2 MG/DL (8.3-10.6); CARBON DIOXIDE LEVEL 27.0 MMOL/L (20-31); CHLORIDE LEVEL 108.0 MMOL/L (98-107); CREATININE FOR GFR 1.4 MG/DL (0.70-1.30); GLOMERULAR FILTRATION RATE 55.4 (>49); POTASSIUM SERUM 4.2 MMOL/L (3.5-5.1); SODIUM LEVEL 143.0 MMOL/L (136-145)
[2025-03-12 08:44] VITALS: BP 115/56
[2025-03-12] MEDS ORDERED: PERCOCET PO (11:06)
== END 2025-03-12 12:53 | disposition home or self-care (01) | DRG 330 ==
LOC: M OR 06:11 → M MS5PR 11:55
PROVIDERS: ADMIT Surgery; ATTEND Surgery
PROC: 0DBB4ZZ Excision of Ileum, Percutaneous Endoscopic Approach (ICD-10-PCS; 2025-03-09)
PROC: 0WQF4ZZ Repair Abdominal Wall, Percutaneous Endoscopic Approach (ICD-10-PCS; principal; 2025-03-09 07:30)
DX: Z43.2 Encounter for attention to ileostomy (principal); I50.42 Chronic combined systolic (congestive) and diastolic (congestive) heart failure; I48.21 Permanent atrial fibrillation; I13.0 Hypertensive heart and chronic kidney disease with heart failure and stage 1 through stage 4 chronic kidney disease, or unspecified chronic kidney disease; C19 Malignant neoplasm of rectosigmoid junction; J44.9 Chronic obstructive pulmonary disease, unspecified; I27.20 Pulmonary hypertension, unspecified; K43.5 Parastomal hernia without obstruction or gangrene; I95.9 Hypotension, unspecified; N18.9 Chronic kidney disease, unspecified; D72.829 Elevated white blood cell count, unspecified; F17.218 Nicotine dependence, cigarettes, with other nicotine-induced disorders; Z79.82 Long term (current) use of aspirin; Z79.899 Other long term (current) drug therapy; Z88.8 Allergy status to other drugs, medicaments and biological substances